=== PATIENT | female | born 1965 | race Caucasian/White ===

== ENCOUNTER 2021-11-01 09:27 | Inpatient (IN) | payer OTHER, MEDICAID, SELFPAY ==
[2021-11-01] VITALS (17 sets, daily range): BP systolic 109–141; BP diastolic 55–71; PULSE 93–119; RESP 16–26; TEMP 36.4–37.9; O2SAT 94–100; BMI 48.2
--- NOTE | 2021-11-01 09:40 | DI.RAD.S_ITS ---
PROCEDURE: XR ACUTE ABDOMEN SERIES INDICATIONS: Short of breath, fatigue TECHNIQUE: One view chest and two views of the abdomen were acquired. COMPARISON: [facility], CT, CT ANGIO CHEST PE, 10/12/2020, 13:31. FINDINGS: This study is limited by body habitus. Surgical changes and devices: Left groin clips are faintly seen. Chest: Generalized interstitial prominence can be seen No focal infiltrates are seen. Heart size is moderately enlarged. No pleural effusions. No pneumoperitoneum. Abdomen: Bowel gas pattern is normal. No suspicious calcifications. Visualized solid organ contours appear normal. Bones: No suspicious bony lesions. IMPRESSION: Cardiomegaly and interstitial prominence. Please correlate with patient presentation, physical examination findings, and laboratory values for congestive heart failure. A nonobstructive bowel gas pattern is seen. If clinically appropriate, please consider a repeat plain film study or a dedicated CT of the abdomen and pelvis, if the patient's symptoms persist or worsen. Dictated by: Jeyson Lechuga M.D. on 11/01/2021 at 9:27 Approved by: Jeyson Lechuga M.D. on 11/01/2021 at 9:28
--- NOTE | 2021-11-01 09:41 | ED_ITS ---
HPI - SOB/Dyspnea General Chief Complaint: Shortness of Breath/Dyspnea Stated Complaint: swollen waist to feet, SOB, chest burning Time Seen by Provider: 11/01/21 09:39 History of Present Illness HPI Narrative: 56-year-old female with reported history of hypertension, hyperlipidemia and high risk for stroke and myocardial infarction presents with a chief complaint of upwards of 1 week of increasing shortness of breath. She states that exertion makes her profoundly short of breath and now she can only walk about 50 ft before becoming short of breath. She denies any dizziness or li ghtheadedness. She denies any chest pain, nausea or vomiting. She states that she has been swelling from her lower extremities of to her abdomen. She denies any history of the same. She denies new medications, recent travel or dietary change. Additionally, she states she become short of breath when lying flat. Patient denies dark stool, red stool, or blood in urine. She states she has a family history of Herediatry hemorrhagic telangiectasia. Related Data Home Medications Medication Instructions Recorded Confirmed albuterol sulfate 90 mcg/actuation 2 puff INHALATION Q6HR PRN 11/01/21 11/01/21 aerosol inhaler (Ventolin HFA) hydrochlorothiazide 25 mg tablet 25 mg PO DAILY 11/01/21 11/01/21 lisinopril 20 mg tablet 20 mg PO DAILY 11/01/21 11/01/21 metformin 1,000 mg tablet 1,000 mg PO BID 11/01/21 11/01/21 pravastatin 10 mg tablet 10 mg PO DAILY 11/01/21 11/01/21 Allergies Allergy/AdvReac Type Severity Reaction Status Date / Time Fish Containing Products Allergy Verified 11/01/21 15:52 Review of Systems Review of Systems Narrative: GENERAL: See HPI HEENT: Denies sinus pain, ear pain, sore throat, difficulty swallowing, dizziness. RESPIRATORY: See HPI CARDIOVASCULAR: See HPI GASTROINTESTINAL: See HP : Denies dysuria, frequency, incontinence, hematuria, urinary retention. MUSCULOSKELETAL: denies weakness, joint pain, or bony pain SKIN: Denies rash, skin lesions, or other NEUROLOGIC: Denies weakness, headache, numbness, change in speech, confusion, seizures, incoordination. PSYCHIATRIC: No concerning psychosocial issues. 12 point review of systems is negative except for those stated above Patient History Social History household members: family Smoking Status: Current every day smoker Exam Narrative Exam Narrative: GENERAL: [56 year old patient appears stated age. Well-developed patient, in mild distress. Significantly breathless with minimal exertion, use of accessory muscles, conversational dyspnea HEAD: Atraumatic. Normocephalic. EYES: Pupils equal round and reactive. Extraocular motions intact. No scleral icterus. No injection or drainage. ENT: Nose without bleeding, purulent drainage. Throat without erythema, tonsillar hypertrophy or exudate. Airway patent. NECK: Trachea midline. Non tender CARDIOVASCULAR: Tachycardic but regular rhythm without murmurs, gallops, or rubs. 2+ pitting edema bilateral lower extremities RESPIRATORY: Faint crackles in bilateral bases, increased work of breathing and use of accessory muscles. GASTROINTESTINAL: Abdomen soft, non-tender, nondistended. EXTREMITIES: No edema or joint tenderness. BACK: Nontender without deformity or crepitance. No flank tenderness. NEURO: AOx3. SKIN: No rash or erythema of visible areas Initial Vital Signs Initial Vital Signs: Vital Signs Pulse Rate 100 H 11/01/21 09:51 Respiratory Rate 26 H 11/01/21 09:51 Blood Pressure 128/60 11/01/21 09:51 Pulse Oximetry 100 11/01/21 09:51 Course Orders Ordered: ED Orders 11/01/21 10:18 COVID19 -Nasal RAPID/Pre-Proc Stat 11/01/21 10:19 Packed Cells Stat Type and Screen Stat 11/01/21 10:40 Urine Culture Stat Urine Microscopic Stat Acetaminophen (Acetaminophen 325 Mg Tablet) 650 mg PO Q6HR PRN PRN Reason: pain Dextrose (Dextrose 50 % In Water 25 Gm/50 Ml Syringe) 25 gm IV PRN PRN; Protocol PRN Reason: Hypoglycemia Insulin Human Lispro (Insulin Lispro 100 Unit/Ml 3ml Vial) 0 unit SUBCUT [facility]; Protocol Last Admin: 11/01/21 18:19 Dose: Not Given Documented by: CWEAVER Discontinued Medications Furosemide (Furosemide 40 Mg/4 Ml Vial) 40 mg IV NOW ONE Stop: 11/01/21 10:08 Last Admin: 11/01/21 10:32 Dose: 40 mg Documented by: FLORIDAS Vital Signs Vital signs: Vital Signs - 8 hr 11/01/21 11:00 Pulse Rate 98 H Respiratory Rate 20 Blood Pressure 115/71 Pulse Oximetry 98 MDM - SOB/Dyspnea Lab Data Result diagrams: 11/01/21 09:48 11/01/21 09:48 Labs: Lab Results 11/01/21 11/01/21 11/01/21 Range/Units 09:48 09:48 09:48 WBC 8.4 (4.5-11.0) X10^3/uL RBC 3.88 L (4.0-5.2) X10^6/uL Hgb 5.9 L* (12.0-16.0) g/dL Hct 22.1 L (36-46) % MCV 57.0 L (80-100) fL MCH 15.3 L (26-34) PG MCHC 26.8 L (30-36) % RDW 23.6 H (11.6-14.8) % Plt Count 259 (150-400) X10^3/uL Neut % (Auto) 81.8 H (50-75) % Lymph % (Auto) 7.5 L (25-40) % Dewey % (Auto) 6.7 (3-14) % Eos % (Auto) 2.5 (2-4) % Baso % (Auto) 1.5 (0-2) % Neut # (Auto) 6900 (4848-5602) /uL Lymph # (Auto) 600 L (6060-1700) /uL Dewey # (Auto) 600 (0-900) /uL Eos # (Auto) 200 (0-450) /uL Baso # (Auto) 100 (0-100) /uL Nucleated RBCs Cancelled Hypersegmented Neuts Cancelled Hypogranular Neuts Cancelled Reactive Lymphocytes Cancelled Smudge Cells Cancelled Other Cell Type Cancelled Toxic Granulation Cancelled Toxic Vacuolation Cancelled Dohle Bodies Cancelled Hung Rods Cancelled WBC Morphology Comment Cancelled Platelet Estimate Cancelled Clumped Platelets Cancelled Plt Morphology Comment Cancelled RBC Morphology Cancelled Dimorphic RBCs Cancelled Polychromasia Cancelled Hypochromasia Cancelled Poikilocytosis Cancelled Basophilic Stippling Cancelled Anisocytosis Cancelled Microcytosis Cancelled Macrocytosis Cancelled Spherocytes Cancelled Pappenheimer Bodies Cancelled Sickle Cells Cancelled Target Cells Cancelled Tear Drop Cells Cancelled Ovalocytes Cancelled Stomatocytes Cancelled Helmet Cells Cancelled Douglas-Chalfant Bodies Cancelled [place] Rings Cancelled Whitman Cells Cancelled Acanthocytes (Spur) Cancelled Rouleaux Cancelled Schistocytes Cancelled D-Dimer 318 H (<230) ng/mL Sodium 139 (137-145) mmol/L Potassium 4.3 (3.4-5.1) mmol/L Chloride 103 (98-107) mmol/L Carbon Dioxide 26 (22-32) mmol/L BUN 19 H (7-17) mg/dL Creatinine 0.57 (0.52-1.04) mg/dL Estimated GFR > 60 (>60) mL/min BUN/Creatinine Ratio 33.3 H (6-22) Glucose 210 H (70-100) mg/dL Lactate (0.7-2.1) mmol/L Calcium 8.9 (8.4-10.2) mg/dL Magnesium 1.8 (1.6-2.3) mg/dL Iron (37-170) ug/dL TIBC (265-497) ug/dL % Saturation (15-50) % Transferrin (206-381) mg/dL Ferritin (11-264) ng/mL Total Bilirubin 0.4 (0.2-1.3) mg/dL AST 38 H (14-36) IU/L ALT 23 (<35) IU/L Alkaline Phosphatase 92 (38-126) U/L Total Creatine Kinase 35 (30-135) U/L CK-MB (CK-2) TNP CK-MB (CK-2) Rel Index TNP Troponin I < 0.012 (0.01-0.034) ng/mL NT-Pro-B Natriuret Pep 702 H (<125) pg/mL Total Protein 7.2 (6.3-8.2) g/dL Albumin 4.1 (3.5-5.0) g/dL Globulin 3.1 (1.7-4.1) g/dL Albumin/Globulin Ratio 1.3 (1.0-2.8) Urine RBC (0-5/HPF) Urine WBC (0-5/HPF) Ur Squamous Epith Cells (0-5/HPF) Urine Bacteria (None) Ur Culture Indicated? SARS-CoV-2 (PCR) (Negative) Blood Type Antibody Screen Crossmatch 11/01/21 11/01/21 11/01/21 Range/Units 09:48 09:48 09:48 WBC (4.5-11.0) X10^3/uL RBC (4.0-5.2) X10^6/uL Hgb (12.0-16.0) g/dL Hct (36-46) % MCV (80-100) fL MCH (26-34) PG MCHC (30-36) % RDW (11.6-14.8) % Plt Count (150-400) X10^3/uL Neut % (Auto) (50-75) % Lymph % (Auto) (25-40) % Dewey % (Auto) (3-14) % Eos % (Auto) (2-4) % Baso % (Auto) (0-2) % Neut # (Auto) (5656-8906) /uL Lymph # (Auto) (9990-1196) /uL Dewey # (Auto) (0-900) /uL Eos # (Auto) (0-450) /uL Baso # (Auto) (0-100) /uL Nucleated RBCs Hypersegmented Neuts Hypogranular Neuts Reactive Lymphocytes Smudge Cells Other Cell Type Toxic Granulation Toxic Vacuolation Dohle Bodies Hung Rods WBC Morphology Comment Platelet Estimate Clumped Platelets Plt Morphology Comment RBC Morphology Dimorphic RBCs Polychromasia Hypochromasia Poikilocytosis Basophilic Stippling Anisocytosis Microcytosis Macrocytosis Spherocytes Pappenheimer Bodies Sickle Cells Target Cells Tear Drop Cells Ovalocytes Stomatocytes Helmet Cells Douglas-Chalfant Bodies Arcadia Rings Leonel Cells Acanthocytes (Spur) Rouleaux Schistocytes D-Dimer (<230) ng/mL Sodium (137-145) mmol/L Potassium (3.4-5.1) mmol/L Chloride (98-107) mmol/L Carbon Dioxide (22-32) mmol/L BUN (7-17) mg/dL Creatinine (0.52-1.04) mg/dL Estimated GFR (>60) mL/min BUN/Creatinine Ratio (6-22) Glucose (70-100) mg/dL Lactate 2.7 H (0.7-2.1) mmol/L Calcium (8.4-10.2) mg/dL Magnesium (1.6-2.3) mg/dL Iron 26 L (37-170) ug/dL TIBC 494 (265-497) ug/dL % Saturation 5 L (15-50) % Transferrin 454 H (206-381) mg/dL Ferritin 6 L (11-264) ng/mL Total Bilirubin (0.2-1.3) mg/dL AST (14-36) IU/L ALT (<35) IU/L Alkaline Phosphatase (38-126) U/L Total Creatine Kinase (30-135) U/L CK-MB (CK-2) CK-MB (CK-2) Rel Index Troponin I (0.01-0.034) ng/mL NT-Pro-B Natriuret Pep (<125) pg/mL Total Protein (6.3-8.2) g/dL Albumin (3.5-5.0) g/dL Globulin (1.7-4.1) g/dL Albumin/Globulin Ratio (1.0-2.8) Urine RBC (0-5/HPF) Urine WBC (0-5/HPF) Ur Squamous Epith Cells (0-5/HPF) Urine Bacteria (None) Ur Culture Indicated? SARS-CoV-2 (PCR) (Negative) Blood Type Antibody Screen Crossmatch 11/01/21 11/01/21 11/01/21 Range/Units 10:18 10:19 10:40 WBC (4.5-11.0) X10^3/uL RBC (4.0-5.2) X10^6/uL Hgb (12.0-16.0) g/dL Hct (36-46) % MCV (80-100) fL MCH (26-34) PG MCHC (30-36) % RDW (11.6-14.8) % Plt Count (150-400) X10^3/uL Neut % (Auto) (50-75) % Lymph % (Auto) (25-40) % Dewey % (Auto) (3-14) % Eos % (Auto) (2-4) % Baso % (Auto) (0-2) % Neut # (Auto) (9187-6497) /uL Lymph # (Auto) (3429-6956) /uL Dewey # (Auto) (0-900) /uL Eos # (Auto) (0-450) /uL Baso # (Auto) (0-100) /uL Nucleated RBCs Hypersegmented Neuts Hypogranular Neuts Reactive Lymphocytes Smudge Cells Other Cell Type Toxic Granulation Toxic Vacuolation Dohle Bodies Hung Rods WBC Morphology Comment Platelet Estimate Clumped Platelets Plt Morphology Comment RBC Morphology Dimorphic RBCs Polychromasia Hypochromasia Poikilocytosis Basophilic Stippling Anisocytosis Microcytosis Macrocytosis Spherocytes Pappenheimer Bodies Sickle Cells Target Cells Tear Drop Cells Ovalocytes Stomatocytes Helmet Cells Douglas-Chalfant Bodies Arcadia Rings Leonel Cells Acanthocytes (Spur) Rouleaux Schistocytes D-Dimer (<230) ng/mL Sodium (137-145) mmol/L Potassium (3.4-5.1) mmol/L Chloride (98-107) mmol/L Carbon Dioxide (22-32) mmol/L BUN (7-17) mg/dL Creatinine (0.52-1.04) mg/dL Estimated GFR (>60) mL/min BUN/Creatinine Ratio (6-22) Glucose (70-100) mg/dL Lactate (0.7-2.1) mmol/L Calcium (8.4-10.2) mg/dL Magnesium (1.6-2.3) mg/dL Iron (37-170) ug/dL TIBC (265-497) ug/dL % Saturation (15-50) % Transferrin (206-381) mg/dL Ferritin (11-264) ng/mL Total Bilirubin (0.2-1.3) mg/dL AST (14-36) IU/L ALT (<35) IU/L Alkaline Phosphatase (38-126) U/L Total Creatine Kinase (30-135) U/L CK-MB (CK-2) CK-MB (CK-2) Rel Index Troponin I (0.01-0.034) ng/mL NT-Pro-B Natriuret Pep (<125) pg/mL Total Protein (6.3-8.2) g/dL Albumin (3.5-5.0) g/dL Globulin (1.7-4.1) g/dL Albumin/Globulin Ratio (1.0-2.8) Urine RBC None seen (0-5/HPF) Urine WBC 0-1/hpf (0-5/HPF) Ur Squamous Epith Cells None seen (0-5/HPF) Urine Bacteria None seen (None) Ur Culture Indicated? Cult not indicated SARS-CoV-2 (PCR) Negative (Negative) Blood Type O Positive Antibody Screen Negative Crossmatch See Detail Urine Dip Bedside Urine Glucose Negative Bedside Urine Bilirubin - Negative Bedside Urine Ketone - Negative Urine Specific [place] 1.020 Bedside Urine Occult Blood - Negative Bedside Urine pH 6 Bedside Urine Protein + 30 Bedside Urine Urobilinogen - Negative Bedside Urine Nitrite - Negative Bedside Urine Leukocytes - Negative Esterase Imaging Data Chest x-ray: Radiologist's Impression: Launch?[address] [address] XRay Report Signed Patient: Jayme Colby MR#: [id number] : 1965 Acct:[id number] Age/Sex: 56 / F Date of Service: 11/01/21 Loc: ED Accession Number: [id number] ?? Procedure: XR acute abdomen series Ordering Provider: Herb Michael D.O. PROCEDURE:? XR ACUTE ABDOMEN SERIES ? INDICATIONS:? Short of breath, fatigue ? TECHNIQUE:? One view chest and two views of the abdomen were acquired.? ? COMPARISON:? [facility], CT, CT ANGIO CHEST PE, 10/12/2020, 13:31. ? FINDINGS:? This study is limited by body habitus.? ? Surgical changes and devices:? Left groin clips are faintly seen. ? Chest:? Generalized interstitial prominence can be seen No focal infiltrates are seen.? Heart size is moderately enlarged.? No pleural effusions.? No pneumoperitoneum.? ? Abdomen:? Bowel gas pattern is normal.? No suspicious calcifications.? Visualized solid organ contours appear normal.? ? Bones:? No suspicious bony lesions.? ? ? IMPRESSION:? Cardiomegaly and interstitial prominence. Please correlate with patient presentation, physical examination findings, and laboratory values for congestive heart failure. ? ? A nonobstructive bowel gas pattern is seen. ? If clinically appropriate, please consider a repeat plain film study or a dedicated CT of the abdomen and pelvis, if the patient's symptoms persist or worsen. ? Dictated by: Jeyson Lechuga M.D. on 11/01/2021 at 9:27 ? ? Discharge Plan Departure Patient Disposition: Admitted as Observation Clinical Impression: Acute CHF, Anemia Admit Date/Time: 11/01/21 11:09 Admit Provider: Porfirio Vaca
[2021-11-01 10:05] LABS: Add Manual Diff / Slide Review NO; Basophils Absolute Auto 100 /uL (0-100); Basophils Percent Auto 1.5 % (0-2); Eosinophils Absolute Auto 200 /uL (0-450); Eosinophils Percent Auto 2.5 % (2-4); Hematocrit 22.1 % (36-46); Lymphocytes Absolute Auto 600 /uL (1100-4500); Lymphocytes Percent Auto 7.5 % (25-40); Mean Corpuscular HGB Conc 26.8 % (30-36); Mean Corpuscular Hemoglobin 15.3 PG (26-34); Monocytes Absolute Auto 600 /uL (0-900); Monocytes Percent Auto 6.7 % (3-14); Neutrophils Absolute Auto 6900 /uL (1500-7000); Neutrophils Percent Auto 81.8 % (50-75); Platelet Count 259 X10^3/uL (150-400); Red Blood Cell Count 3.88 X10^6/uL (4.0-5.2); Red Cell Distribution Width 23.6 % (11.6-14.8); White Blood Cell Count 8.4 X10^3/uL (4.5-11.0)
[2021-11-01 10:07] LABS: Hemoglobin 5.9 g/dL (12.0-16.0)
[2021-11-01 10:11] LABS: D Dimer 318 ng/mL (<230)
[2021-11-01 10:27] LABS: Alanine Aminotransferase 23 IU/L (<35); Albumin 4.1 g/dL (3.5-5.0); Albumin Globulin Ratio 1.3 (1.0-2.8); Alkaline Phosphatase 92 U/L (38-126); Aspartate Aminotransferase 38 IU/L (14-36); BUN Creatinine Ratio 33.3 (6-22); Bilirubin Total 0.4 mg/dL (0.2-1.3); Blood Urea Nitrogen 19 mg/dL (7-17); Calcium 8.9 mg/dL (8.4-10.2); Carbon Dioxide 26 mmol/L (22-32); Chloride 103 mmol/L (98-107); Creatine Kinase 35 U/L (30-135); Estimated Glomerular Filt Rate > 60 mL/min (>60); Globulin 3.1 g/dL (1.7-4.1); Glucose 210 mg/dL (70-100); HEMOLYSIS < 15 (0-50); Magnesium 1.8 mg/dL (1.6-2.3); Potassium 4.3 mmol/L (3.4-5.1); Sodium 139 mmol/L (137-145); Total Protein 7.2 g/dL (6.3-8.2)
[2021-11-01 10:28] LABS: Lactate (Lactic Acid) 2.7 mmol/L (0.7-2.1)
[2021-11-01] MEDS: FUROSEMIDE 40 MG/4 ML VIAL IV (10:32)
[2021-11-01 10:36] LABS: COVID19 -Nasal RAPID Negative (Negative)
[2021-11-01 10:39] LABS: NT-proBNP (BNP-Adult 18+) 702 pg/mL (<125); Troponin I < 0.012 ng/mL (0.01-0.034)
[2021-11-01 11:14] LABS: Bacteria Urine None Seen; Culture Indicated Urine Cult Not Indicated; RBC Urine None Seen (0-5/HPF); Squamous Epithelial Cell Urine None Seen (0-5/HPF); WBC Urine 0-1/HPF (0-5/HPF)
[2021-11-01 12:00] LABS: Reflexed Lactate in 2 Hours Y
[2021-11-01 13:42] LABS: Lactate 2HR (Lactic Acid Rflx) 1.4 mmol/L (0.7-2.1)
--- NOTE | 2021-11-01 14:41 | PC.NURSE ---
blood started on pt, vitals stable, blood is now almost complete, pt continues to be a Asymptomatic and lying in bed talking on her phone.
--- NOTE | 2021-11-01 14:53 | DI.ECHO.S_ITS ---
[facility] +---------+ [facility] +---------+ : : [address] : : : : [id number] : : : : Phone: [phone] Echocardiogram Report + + :Name: MERI GARCIA Study Date: 11/01/2021 Height: 67 in : :[facility] ReadingLocation: Weight: 308 lb : : Gender: Female BSA: 2.4 m2 : :: 1965 Age: 56 yrs BP: 110/55 mmHg: :Reason For Study: LOVE : :Ordering Physician: NIKHIL, : :SALMA Performed By: Nate Hough : :Referring: SALMA TEJEDA : + + Interpretation Summary The left ventricle is not well visualized. The left ventricle is grossly normal size. The echo findings are consistent with mild dynamic left ventricular intracavitary obstruction. The left ventricle is hyperdynamic. The ejection fraction is estimated to be >80%. There are no obvious focal wall motion abnormalities noted but poor endocardial definition reduces the sensitivity for the detection of such. The interventricular septum is flattened, consistent with a right ventricular pressure/volume condition. The right ventricle is moderate to severely dilated. Right ventricular systolic function is reduced. The right ventricular systolic pressure is estimated to be at least 82 mmHg based on an estimated right atrial pressure of 15 mm Hg. Compared to the prior echo exam, there has been an increase in the severity of pulmonary hypertension. The left atrial size is normal. The right atrium is severely dilated. There is severe tricuspid regurgitation. Compared to the prior echo exam, there has been an increase in TR severity. The aortic root is normal size. Procedure: A two-dimensional transthoracic echocardiogram with color flow and Doppler was performed. The study quality was technically difficult. Comparison is made with the echocardiogram of 04/15/2018. Left Ventricle: The left ventricle is not well visualized. The left ventricle is grossly normal size. The echo findings are consistent with mild dynamic left ventricular intracavitary obstruction. The left ventricle is hyperdynamic. The ejection fraction is estimated to be >80%. There are no obvious focal wall motion abnormalities noted but poor endocardial definition reduces the sensitivity for the detection of such. The interventricular septum is flattened, consistent with a right ventricular pressure/volume condition. Diastolic function could not be accurately assessed due to contradictory data. Right Ventricle: The right ventricle is moderate to severely dilated. Right ventricular systolic function is reduced. Atria: The left atrial size is normal. The right atrium is severely dilated. The interatrial septum grossly appears intact with no obvious evidence for an atrial septal defect. Mitral Valve: There is mild mitral annular calcification. There is no mitral regurgitation noted. Aortic Valve: There is mild aortic valve sclerosis. No aortic regurgitation is present. Tricuspid Valve: The tricuspid valve leaflets are thin and pliable. There is severe tricuspid regurgitation. Compared to the prior echo exam, there has been an increase in TR severity. The right ventricular systolic pressure is estimated to be at least 82 mmHg based on an estimated right atrial pressure of 15 mm Hg. Compared to the prior echo exam, there has been an increase in the severity of pulmonary hypertension. Pulmonic Valve: The pulmonic valve is not well visualized. Great Vessels: The aortic root is normal size. The dimensions of the ascending aorta are normal. The IVC is dilated (diameter is greater than 2.1 cm) and it collapses less than 50% with a sniff. This suggests a high right atrial pressure of 15 mm Hg. Pericardium/ Pleura There is no pericardial effusion. There is no pleural effusion. MMode/2D Measurements & Calculations LVIDd: 4.4 cm LVOT diam: 2.0 cm LVIDs: 2.4 cm Ao root diam: 2.9 cm FS: 46.5 % asc Aorta Diam: 3.3 cm IVSd: 0.91 cm LVPWd: 0.91 cm LV waggoner. diameter/BSA (cm/m^2): 1.8 LV sys. diameter/BSA (cm/m^2): 0.98 LA A2 area: 26.9 cm2 RA long axis: 6.6 cm LA A4 area: 21.5 cm2 RA area: 33.8 cm2 LA length (vol): 6.4 cm RA vol: 146.6 ml LA vol: 77.2 ml RA : 60.3 ml/m2 LA vol index: 31.8 ml/m2 IVC diam: 2.5 cm RVD1 (basal): 6.1 cm TAPSE: 2.8 cm Doppler Measurements & Calculations Ao V2 max: 226.3 cm/sec LVOT Max Dayday: 157.8 cm/sec Ao V2 mean: 160.1 cm/sec LV V1 max P.0 mmHg Ao max P.5 mmHg LV V1 VTI: 26.4 cm Ao mean P.4 mmHg GIDEON(I,D): 2.3 cm2 Ao V2 VTI: 36.3 cm GIDEON(V,D): 2.2 cm2 sev ratio: 0.73 GIDEON indexed to BSA (cm^2/m^2): 0.96 MV E max dayday: 86.7 cm/sec TR max dayday: 409.9 cm/sec MV A max dayday: 140.5 cm/sec TR max P.2 mmHg MV E/A: 0.62 Med Peak E' Dayday: 6.7 cm/sec E/E' med: 12.9 Lat Peak E' Dayday: 7.3 cm/sec E/E' lat: 11.9 E/e' average: 12.4 MV dec time: 0.26 sec SV(LVOT): 84.2 ml Reading Physician:05:36 PM
--- NOTE | 2021-11-01 15:03 | P.HP_ITS ---
History of Present Illness History of Present Illness Date Patient Seen: 11/01/21 Time Patient Seen: 14:30 Date of Onset of Symptoms: 10/22/21 Chief complaint: swollen waist to feet, SOB, chest burning Narrative: Patient is 56-year-old female with history of cigarette smoking, type 2 diabetes, nonocclusive coronary artery disease, hypertension presented with complaints exertional dyspnea for the past 10 days. She notice progressive shor tness of breath with walking even from room to room. She denies shortness of breath or chest pain at rest. She has vague constriction in her chest and throat with walking but denies actual chest pain or chest pressure. She has lately noticed some swelling or tightness in the legs. She has not had any nausea, vomiting, red blood or black stools. No fevers or chills. She has history of nonocclusive coronary artery disease and states she last saw Cardiology a couple of years ago. She had coronary angiogram in her 30s which showed 40% plaque in the left coronary artery. This is per patient's recollection. She has history of chronic sinus tachycardia as well. Evaluation in the ER was remarkable for hemoglobin of 5.9 and hematocrit of 22.1 with an MCV of 57. Electrolytes and renal function were normal. Glucose was 210. BNP was 702. Troponin was normal. Her COVID PCR was negative. Chest x- ray showed mild interstitial prominence. EKG showed sinus rhythm without ST or T-wave abnormality. No evidence of old CO. she was provided dose of IV Lasix 40 mg and started on blood transfusion. Family history notable for hereditary hemorrhagic cholangectasia in mom, grandfather and distant family members. Mom also had coronary artery disease requiring CABG and of a stroke. Dad had heart failure. Patient is a current smoker was up to 2 packs per day but recently cut down to less than 1 pack a day. Patient History Family & Social History Social History: household members family Prior Living Arrangements House Safety & Behavioral: Feels Safe in Current Yes Environment Been Physically Hurt or No Threatened By a Person Tobacco & Substance use: Tobacco type cigarettes Smoking Status Current every day smoker Substance Use Type does not use Meds Home Medications and Allergies Home Medications Medication Instructions Recorded Confirmed Type albuterol sulfate 90 mcg/actuation 2 puff INHALATION Q6HR PRN 11/01/21 11/01/21 History aerosol inhaler (Ventolin HFA) hydrochlorothiazide 25 mg tablet 25 mg PO DAILY 11/01/21 11/01/21 History lisinopril 20 mg tablet 20 mg PO DAILY 11/01/21 11/01/21 History metformin 1,000 mg tablet 1,000 mg PO BID 11/01/21 11/01/21 History pravastatin 10 mg tablet 10 mg PO DAILY 11/01/21 11/01/21 History Review of Systems Review of Systems Narrative: Complete 10 point ROS negative other than stated under HPI. Exam Vital Signs (past 8 hours): - 11/01/21 09:51 11/01/21 09:52 11/01/21 10:25 Temperature Pulse Rate 100 H 98 H 119 H Respiratory Rate 26 H 20 Blood Pressure 128/60 Pulse Oximetry 100 97 11/01/21 10:26 11/01/21 10:30 11/01/21 11:00 Temperature Pulse Rate 114 H 100 H 98 H Respiratory Rate 20 19 20 Blood Pressure 141/64 H 122/58 L 115/71 Pulse Oximetry 97 96 98 11/01/21 12:14 11/01/21 12:18 11/01/21 12:28 Temperature 97.8 F 97.8 F 97.8 F Pulse Rate 96 H 96 H 96 H Respiratory Rate 18 18 Blood Pressure 122/69 122/69 122/69 Pulse Oximetry 95 96 11/01/21 12:44 11/01/21 13:19 Temperature 98.3 F 98.9 F Pulse Rate 94 H 93 H Respiratory Rate 16 18 Blood Pressure 109/64 110/55 L Pulse Oximetry Oxygen Delivery Method Room Air Oxygen Flow Rate 0 Narrative Exam Narrative: General: Alert pleasant and cooperative female in no acute distress HEENT: Nontraumatic, anicteric, pupils equal and reactive Neck: No JVD, no lymphadenopathy Lungs: Clear to auscultation Heart: Normal S1 and S2 regular rhythm with slight systolic murmur Abdomen: Obese, nontender, no HSM Extremities: Trace bilateral pretibial edema Neurological: Well oriented, normal affect, normal speech Skin: Pale appearing Objective Labs Result Diagrams: 11/01/21 09:48 11/01/21 09:48 Labs: Laboratory Results - last 24 hr 11/01/21 11/01/21 11/01/21 09:48 09:48 09:48 WBC 8.4 RBC 3.88 L Hgb 5.9 L* Hct 22.1 L MCV 57.0 L MCH 15.3 L MCHC 26.8 L RDW 23.6 H Plt Count 259 Neut % (Auto) 81.8 H Lymph % (Auto) 7.5 L [place] % (Auto) 6.7 Eos % (Auto) 2.5 Baso % (Auto) 1.5 Neut # (Auto) 6900 Lymph # (Auto) 600 L [place] # (Auto) 600 Eos # (Auto) 200 Baso # (Auto) 100 Nucleated RBCs Cancelled Hypersegmented Neuts Cancelled Hypogranular Neuts Cancelled Reactive Lymphocytes Cancelled Smudge Cells Cancelled Other Cell Type Cancelled Toxic Granulation Cancelled Toxic Vacuolation Cancelled Dohle Bodies Cancelled Hung Rods Cancelled WBC Morphology Comment Cancelled Platelet Estimate Cancelled Clumped Platelets Cancelled Plt Morphology Comment Cancelled RBC Morphology Cancelled Dimorphic RBCs Cancelled Polychromasia Cancelled Hypochromasia Cancelled Poikilocytosis Cancelled Basophilic Stippling Cancelled Anisocytosis Cancelled Microcytosis Cancelled Macrocytosis Cancelled Spherocytes Cancelled Pappenheimer Bodies Cancelled Sickle Cells Cancelled Target Cells Cancelled Tear Drop Cells Cancelled Ovalocytes Cancelled Stomatocytes Cancelled Helmet Cells Cancelled [place] Bodies Cancelled [place] Rings Cancelled [place] Cells Cancelled Acanthocytes (Spur) Cancelled Rouleaux Cancelled Schistocytes Cancelled D-Dimer 318 H Sodium 139 Potassium 4.3 Chloride 103 Carbon Dioxide 26 BUN 19 H Creatinine 0.57 Estimated GFR > 60 BUN/Creatinine Ratio 33.3 H Glucose 210 H Lactate Calcium 8.9 Magnesium 1.8 Total Bilirubin 0.4 AST 38 H ALT 23 Alkaline Phosphatase 92 Total Creatine Kinase 35 CK-MB (CK-2) TNP CK-MB (CK-2) Rel Index TNP Troponin I < 0.012 NT-Pro-B Natriuret Pep 702 H Total Protein 7.2 Albumin 4.1 Globulin 3.1 Albumin/Globulin Ratio 1.3 Urine RBC Urine WBC Ur Squamous Epith Cells Urine Bacteria Ur Culture Indicated? SARS-CoV-2 (PCR) Blood Type Antibody Screen Crossmatch 11/01/21 11/01/21 11/01/21 09:48 10:18 10:19 WBC RBC Hgb Hct MCV MCH MCHC RDW Plt Count Neut % (Auto) Lymph % (Auto) [place] % (Auto) Eos % (Auto) Baso % (Auto) Neut # (Auto) Lymph # (Auto) [place] # (Auto) Eos # (Auto) Baso # (Auto) Nucleated RBCs Hypersegmented Neuts Hypogranular Neuts Reactive Lymphocytes Smudge Cells Other Cell Type Toxic Granulation Toxic Vacuolation Dohle Bodies Hung Rods WBC Morphology Comment Platelet Estimate Clumped Platelets Plt Morphology Comment RBC Morphology Dimorphic RBCs Polychromasia Hypochromasia Poikilocytosis Basophilic Stippling Anisocytosis Microcytosis Macrocytosis Spherocytes Pappenheimer Bodies Sickle Cells Target Cells Tear Drop Cells Ovalocytes Stomatocytes Helmet Cells [place] Bodies [place] Rings Leonel Cells Acanthocytes (Spur) Rouleaux Schistocytes D-Dimer Sodium Potassium Chloride Carbon Dioxide BUN Creatinine Estimated GFR BUN/Creatinine Ratio Glucose Lactate 2.7 H Calcium Magnesium Total Bilirubin AST ALT Alkaline Phosphatase Total Creatine Kinase CK-MB (CK-2) CK-MB (CK-2) Rel Index Troponin I NT-Pro-B Natriuret Pep Total Protein Albumin Globulin Albumin/Globulin Ratio Urine RBC Urine WBC Ur Squamous Epith Cells Urine Bacteria Ur Culture Indicated? SARS-CoV-2 (PCR) Negative Blood Type O Positive Antibody Screen Negative Crossmatch See Detail 11/01/21 11/01/21 10:40 13:10 WBC RBC Hgb Hct MCV MCH MCHC RDW Plt Count Neut % (Auto) Lymph % (Auto) [place] % (Auto) Eos % (Auto) Baso % (Auto) Neut # (Auto) Lymph # (Auto) [place] # (Auto) Eos # (Auto) Baso # (Auto) Nucleated RBCs Hypersegmented Neuts Hypogranular Neuts Reactive Lymphocytes Smudge Cells Other Cell Type Toxic Granulation Toxic Vacuolation Dohle Bodies Hung Rods WBC Morphology Comment Platelet Estimate Clumped Platelets Plt Morphology Comment RBC Morphology Dimorphic RBCs Polychromasia Hypochromasia Poikilocytosis Basophilic Stippling Anisocytosis Microcytosis Macrocytosis Spherocytes Pappenheimer Bodies Sickle Cells Target Cells Tear Drop Cells Ovalocytes Stomatocytes Helmet Cells [place] Bodies [place] Rings Leonel Cells Acanthocytes (Spur) Rouleaux Schistocytes D-Dimer Sodium Potassium Chloride Carbon Dioxide BUN Creatinine Estimated GFR BUN/Creatinine Ratio Glucose Lactate 1.4 Calcium Magnesium Total Bilirubin AST ALT Alkaline Phosphatase Total Creatine Kinase CK-MB (CK-2) CK-MB (CK-2) Rel Index Troponin I NT-Pro-B Natriuret Pep Total Protein Albumin Globulin Albumin/Globulin Ratio Urine RBC None seen Urine WBC 0-1/hpf Ur Squamous Epith Cells None seen Urine Bacteria None seen Ur Culture Indicated? Cult not indicated SARS-CoV-2 (PCR) Blood Type Antibody Screen Crossmatch Assessment & Plan Assessment & Plan narrative: This is a 56-year-old female active smoker, obesity, diabetes, nonocclusive CAD presents with 1.5 week history of exertional dyspnea and noted to be severely anemic. 1. Severe microcytic anemia -this is likely due to acute or chronic blood loss from the GI tract, patient is on daily low-dose aspirin, also has notable family history of HHC, has not had previous upper or lower endoscopy -symptoms of severe exertional dyspnea likely anemia related rather than primary cardiac -transfuse 2 units PRBC -iron studies -consult surgery for upper and lower endoscopy -stop daily aspirin -clear liquid diet pending surgery eval 2. Exertional dyspnea -as noted likely anemia related, normal EKG and troponin argues against occlus moon CAD, and clinically does not appear to be in acute heart failure -transthoracic echo -telemetry 3. Type 2 diabetes -low-dose insulin sliding scale -hold metformin -hemoglobin A1c 4. Hypertension -hold lisinopril and HCTZ for now Code status: Full code DVT prophylaxis: Lovenox contraindicated secondary to GI bleed Admit to observation Time Spent With Patient Critical Care time: I spent a total of [] minutes of critical care time on this patient's care today; this time is exclusive of procedural time. Quality VTE Deep Vein Thrombosis/Pulmonary Embolism Present on Admission: No
[2021-11-01 15:22] LABS: HEMOLYSIS 17 (0-50); Iron 26 ug/dL (37-170)
[2021-11-01 15:34] LABS: Percent Iron Saturation 5 % (15-50); Total Iron Binding Capacity 494 ug/dL (265-497); Transferrin 454 mg/dL (206-381)
[2021-11-01 15:59] LABS: Ferritin 6 ng/mL (11-264)
--- NOTE | 2021-11-01 19:07 | DI.CT.S_ITS ---
PROCEDURE: CT ABDOMEN PELVIS W CON INDICATIONS: Abdominal distension TECHNIQUE: After the administration of oral and IV contrast, axial sections were acquired from the lung bases to the pubic symphysis. Coronal and sagittal reformats were performed. For radiation dose reduction, the following was used: automated exposure control, adjustment of mA and/or kV according to patient size. COMPARISON: [facility], CT, CT ANGIO CHEST PE, 10/12/2020, 13:31. FINDINGS: Image quality: Excellent. Lung bases: Unremarkable. Heart: Heart size is enlarged. ABDOMEN: Liver: No mass lesion. Gallbladder: Within normal limits without calcified gallstones. Biliary ducts: No biliary ductal dilatation. Pancreas: Unremarkable. Spleen: Normal in size. Adrenal Glands: There is a thin walled cystic lesion associated with the left adrenal gland measuring up to 2.0 cm. Kidneys and Ureters: No hydronephrosis. Stomach and Bowel: Stomach, small bowel loops, and colon are normal in caliber and wall thickness. No pericecal inflammatory changes to suggest appendicitis. There is colonic diverticulosis without acute diverticulitis Peritoneum: No abnormal intraperitoneal fluid. No free air. Ventral Wall: No hernia. There is diffuse subcutaneous edema within the abdominal wall suggestive of anasarca. Abdominal Nodes: No retroperitoneal or mesenteric adenopathy by size criteria. Vessels: Aorta and inferior vena cava are normal in size. There is a small peripherally calcified aneurysm along the right renal artery measuring up to 1.3 cm. PELVIS: Pelvic Organs: Unremarkable. Bladder: Unremarkable. Pelvic Nodes: No enlarged lymph nodes. Miscellaneous: No inguinal hernias are seen. Bones: Visualized osseous structures demonstrate no suspicious focal lesions. IMPRESSION: 1. Diffuse subcutaneous edema within the abdominal wall suggestive of anasarca. Recommend correlation clinically. 2. Cystic lesion associated with the left adrenal gland likely representing sequelae of prior trauma or infection. 3. 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 Dictated by: Abe Tanner M.D. on 11/01/2021 at 20:07 Approved by: Abe Tanner M.D. on 11/01/2021 at 20:15
--- NOTE | 2021-11-01 19:13 | P.CONS_ITS ---
History of Present Illness Consult details Date Patient Seen: 11/01/21 Time Patient Seen: 19:13 Chief complaint: swollen waist to feet, SOB, chest burning Narrative: Jayme Colby is a 56-year-old woman who presented with complaints of 2 weeks of weakness and abdominal bloating. She noted that she has gained weight during this time frame. She has had some abdominal pain after eating during this time frame. In the ER she was noted to be severely anemic and 2 units of packed red blood cells were started. She has never had a colonoscopy. Her mother had some sort of radiographer angiogram cancer as well as hereditary telangiectasia. She has not noted any blood or melena recently. She does look at her bowel movements regularly. Meds Home Medications and Allergies Home Medications Medication Instructions Recorded Confirmed Type albuterol sulfate 90 mcg/actuation 2 puff INHALATION Q6HR PRN 11/01/21 11/01/21 History aerosol inhaler (Ventolin HFA) hydrochlorothiazide 25 mg tablet 25 mg PO DAILY 11/01/21 11/01/21 History lisinopril 20 mg tablet 20 mg PO DAILY 11/01/21 11/01/21 History metformin 1,000 mg tablet 1,000 mg PO BID 11/01/21 11/01/21 History pravastatin 10 mg tablet 10 mg PO DAILY 11/01/21 11/01/21 History Allergies Allergy/AdvReac Type Severity Reaction Status Date / Time Fish Containing Products Allergy Verified 11/01/21 15:52 Exam Vital Signs (past 8 hours): - 11/01/21 12:14 11/01/21 12:18 11/01/21 12:28 Temperature 97.8 F 97.8 F 97.8 F Pulse Rate 96 H 96 H 96 H Respiratory Rate 18 18 Blood Pressure 122/69 122/69 122/69 Pulse Oximetry 95 96 11/01/21 12:44 11/01/21 13:19 11/01/21 15:53 Temperature 98.3 F 98.9 F Pulse Rate 94 H 93 H Respiratory Rate 16 18 Blood Pressure 109/64 110/55 L Pulse Oximetry 96 11/01/21 16:55 Temperature 100.2 F H Pulse Rate 103 H Respiratory Rate 18 Blood Pressure 126/68 Pulse Oximetry 94 Oxygen Delivery Method Room Air Oxygen Flow Rate 0 Const Nutritional Appearance: obese GI Other: There are no peritoneal signs No tenderness to palpation Objective Labs Result Diagrams: 11/01/21 09:48 11/01/21 09:48 Labs: Laboratory Results - last 24 hr 11/01/21 11/01/21 11/01/21 09:48 09:48 09:48 WBC 8.4 RBC 3.88 L Hgb 5.9 L* Hct 22.1 L MCV 57.0 L MCH 15.3 L MCHC 26.8 L RDW 23.6 H Plt Count 259 Neut % (Auto) 81.8 H Lymph % (Auto) 7.5 L [place] % (Auto) 6.7 Eos % (Auto) 2.5 Baso % (Auto) 1.5 Neut # (Auto) 6900 Lymph # (Auto) 600 L [place] # (Auto) 600 Eos # (Auto) 200 Baso # (Auto) 100 Nucleated RBCs Cancelled Hypersegmented Neuts Cancelled Hypogranular Neuts Cancelled Reactive Lymphocytes Cancelled Smudge Cells Cancelled Other Cell Type Cancelled Toxic Granulation Cancelled Toxic Vacuolation Cancelled Dohle Bodies Cancelled Hung Rods Cancelled WBC Morphology Comment Cancelled Platelet Estimate Cancelled Clumped Platelets Cancelled Plt Morphology Comment Cancelled RBC Morphology Cancelled Dimorphic RBCs Cancelled Polychromasia Cancelled Hypochromasia Cancelled Poikilocytosis Cancelled Basophilic Stippling Cancelled Anisocytosis Cancelled Microcytosis Cancelled Macrocytosis Cancelled Spherocytes Cancelled Pappenheimer Bodies Cancelled Sickle Cells Cancelled Target Cells Cancelled Tear Drop Cells Cancelled Ovalocytes Cancelled Stomatocytes Cancelled Helmet Cells Cancelled [place] Bodies Cancelled [place] Rings Cancelled Leonel Cells Cancelled Acanthocytes (Spur) Cancelled Rouleaux Cancelled Schistocytes Cancelled D-Dimer 318 H Sodium 139 Potassium 4.3 Chloride 103 Carbon Dioxide 26 BUN 19 H Creatinine 0.57 Estimated GFR > 60 BUN/Creatinine Ratio 33.3 H Glucose 210 H Lactate Calcium 8.9 Magnesium 1.8 Iron TIBC % Saturation Transferrin Ferritin Total Bilirubin 0.4 AST 38 H ALT 23 Alkaline Phosphatase 92 Total Creatine Kinase 35 CK-MB (CK-2) TNP CK-MB (CK-2) Rel Index TNP Troponin I < 0.012 NT-Pro-B Natriuret Pep 702 H Total Protein 7.2 Albumin 4.1 Globulin 3.1 Albumin/Globulin Ratio 1.3 Urine RBC Urine WBC Ur Squamous Epith Cells Urine Bacteria Ur Culture Indicated? SARS-CoV-2 (PCR) Blood Type Antibody Screen Crossmatch 11/01/21 11/01/21 11/01/21 09:48 09:48 09:48 WBC RBC Hgb Hct MCV MCH MCHC RDW Plt Count Neut % (Auto) Lymph % (Auto) [place] % (Auto) Eos % (Auto) Baso % (Auto) Neut # (Auto) Lymph # (Auto) [place] # (Auto) Eos # (Auto) Baso # (Auto) Nucleated RBCs Hypersegmented Neuts Hypogranular Neuts Reactive Lymphocytes Smudge Cells Other Cell Type Toxic Granulation Toxic Vacuolation Dohle Bodies Hung Rods WBC Morphology Comment Platelet Estimate Clumped Platelets Plt Morphology Comment RBC Morphology Dimorphic RBCs Polychromasia Hypochromasia Poikilocytosis Basophilic Stippling Anisocytosis Microcytosis Macrocytosis Spherocytes Pappenheimer Bodies Sickle Cells Target Cells Tear Drop Cells Ovalocytes Stomatocytes Helmet Cells [place] Bodies [place] Rings [place] Cells Acanthocytes (Spur) Rouleaux Schistocytes D-Dimer Sodium Potassium Chloride Carbon Dioxide BUN Creatinine Estimated GFR BUN/Creatinine Ratio Glucose Lactate 2.7 H Calcium Magnesium Iron 26 L TIBC 494 % Saturation 5 L Transferrin 454 H Ferritin 6 L Total Bilirubin AST ALT Alkaline Phosphatase Total Creatine Kinase CK-MB (CK-2) CK-MB (CK-2) Rel Index Troponin I NT-Pro-B Natriuret Pep Total Protein Albumin Globulin Albumin/Globulin Ratio Urine RBC Urine WBC Ur Squamous Epith Cells Urine Bacteria Ur Culture Indicated? SARS-CoV-2 (PCR) Blood Type Antibody Screen Crossmatch 11/01/21 11/01/21 11/01/21 10:18 10:19 10:40 WBC RBC Hgb Hct MCV MCH MCHC RDW Plt Count Neut % (Auto) Lymph % (Auto) [place] % (Auto) Eos % (Auto) Baso % (Auto) Neut # (Auto) Lymph # (Auto) [place] # (Auto) Eos # (Auto) Baso # (Auto) Nucleated RBCs Hypersegmented Neuts Hypogranular Neuts Reactive Lymphocytes Smudge Cells Other Cell Type Toxic Granulation Toxic Vacuolation Dohle Bodies Hung Rods WBC Morphology Comment Platelet Estimate Clumped Platelets Plt Morphology Comment RBC Morphology Dimorphic RBCs Polychromasia Hypochromasia Poikilocytosis Basophilic Stippling Anisocytosis Microcytosis Macrocytosis Spherocytes Pappenheimer Bodies Sickle Cells Target Cells Tear Drop Cells Ovalocytes Stomatocytes Helmet Cells [place] Bodies [place] Rings Leonel Cells Acanthocytes (Spur) Rouleaux Schistocytes D-Dimer Sodium Potassium Chloride Carbon Dioxide BUN Creatinine Estimated GFR BUN/Creatinine Ratio Glucose Lactate Calcium Magnesium Iron TIBC % Saturation Transferrin Ferritin Total Bilirubin AST ALT Alkaline Phosphatase Total Creatine Kinase CK-MB (CK-2) CK-MB (CK-2) Rel Index Troponin I NT-Pro-B Natriuret Pep Total Protein Albumin Globulin Albumin/Globulin Ratio Urine RBC None seen Urine WBC 0-1/hpf Ur Squamous Epith Cells None seen Urine Bacteria None seen Ur Culture Indicated? Cult not indicated SARS-CoV-2 (PCR) Negative Blood Type O Positive Antibody Screen Negative Crossmatch See Detail 11/01/21 13:10 WBC RBC Hgb Hct MCV MCH MCHC RDW Plt Count Neut % (Auto) Lymph % (Auto) [place] % (Auto) Eos % (Auto) Baso % (Auto) Neut # (Auto) Lymph # (Auto) [place] # (Auto) Eos # (Auto) Baso # (Auto) Nucleated RBCs Hypersegmented Neuts Hypogranular Neuts Reactive Lymphocytes Smudge Cells Other Cell Type Toxic Granulation Toxic Vacuolation Dohle Bodies Hung Rods WBC Morphology Comment Platelet Estimate Clumped Platelets Plt Morphology Comment RBC Morphology Dimorphic RBCs Polychromasia Hypochromasia Poikilocytosis Basophilic Stippling Anisocytosis Microcytosis Macrocytosis Spherocytes Pappenheimer Bodies Sickle Cells Target Cells Tear Drop Cells Ovalocytes Stomatocytes Helmet Cells [place] Bodies [place] Rings Leonel Cells Acanthocytes (Spur) Rouleaux Schistocytes D-Dimer Sodium Potassium Chloride Carbon Dioxide BUN Creatinine Estimated GFR BUN/Creatinine Ratio Glucose Lactate 1.4 Calcium Magnesium Iron TIBC % Saturation Transferrin Ferritin Total Bilirubin AST ALT Alkaline Phosphatase Total Creatine Kinase CK-MB (CK-2) CK-MB (CK-2) Rel Index Troponin I NT-Pro-B Natriuret Pep Total Protein Albumin Globulin Albumin/Globulin Ratio Urine RBC Urine WBC Ur Squamous Epith Cells Urine Bacteria Ur Culture Indicated? SARS-CoV-2 (PCR) Blood Type Antibody Screen Crossmatch [facility] Social History household members: family Tobacco & Substance Use Smoking Status: Current every day smoker Assessment & Plan Assessment and plan (1) Anemia: Qualifiers: Anemia type: unspecified type Qualified Code(s): D64.9 - Anemia, unspecified Status: Acute Plan I will order a CT abdomen pelvis to rule out radiographer angiogram malignancy since she has noted weight gain and bloating. If no abnormalities are noted we would proceed with an EGD tomorrow. If no abnormalities are found on EGD we would start a colon prep and perform a colonoscopy the day after tomorrow. Time Spent With Patient Critical Care time: I spent a total of [] minutes of critical care time on this patient's care today; this time is exclusive of procedural time.
--- NOTE | 2021-11-01 19:35 | PC.NURSE ---
Pt. went down stairs for CT to her abdomen and pelvis, via wheel chair.
[2021-11-01] MEDS: ACETAMINOPHEN 325 MG TABLET 650 MG PO (23:14)
[2021-11-01] MEDS: SODIUM CHLORIDE 0.9% FLUSH 10 ML IV (23:18)
[2021-11-02] VITALS (20 sets, daily range): BP systolic 111–132; BP diastolic 50–85; PULSE 70–102; RESP 12–20; TEMP 36.1–36.9; O2SAT 92–98
--- NOTE | 2021-11-02 | PATH_ITS ---
[facility] Accession Number: [id number] . 01 Material submitted: . PART A: stomach - ANTRAL PART B: stomach - GASTRIC BODY . 02 Diagnosis: A. Antral: Portions of gastric antral and body type mucosa with mild chronic inflammation. Negative for Helicobacter organisms by immunohistochemistry. Negative for intestinal metaplasia. Negative for dysplasia or malignancy. . B. Gastric Body: Gastric body-type mucosa with mild chronic inflammation and mucosal erosion. Negative for Helicobacter organisms by immunohistochemistry. Negative for intestinal metaplasia. Negative for dysplasia or malignancy. [facility] 11/07/2021 1318 Local . 02 Electronically signed: . Thalia Kendrick MD, Pathologist NPI- [id number] . 01 Gross description: . Part A: ANTRAL: Received in formalin are 4 fragment(s) of araya, soft tissue measuring 0.4 x 0.2 x 0.2 cm to 0.2 x 0.2 x 0.1 cm submitted entirely in 1 cassette(s) Part B: GASTRIC BODY: Received in formalin are 2 fragment(s) of araya, soft tissue measuring 0.4 x 0.2 x 0.1 cm to 0.3 x 0.3 x 0.2 cm submitted entirely in 1 cassette(s) /QBJ 11/05/2021 0854 Local . 02 Microscopic: . A. An immunohistochemical stain is performed to evaluate for Helicobacter organisms and is negative. The control stain shows appropriate reactivity. . B. An immunohistochemical stain is performed to evaluate for Helicobacter organisms and is negative. The control stain shows appropriate reactivity. . * This test was developed and its performance characteristics determined by [employer]. It has not been cleared or approved by the U.S. Food and Drug Administration. The FDA has determined that such clearance or approval is not necessary. This test is used for clinical purposes. It should not be regarded as investigational or for research. . 02 Pathologist provided ICD-10: K29.70 . 02 CPT . 240290, 708594, [id number] Specimen Comment: A courtesy copy of this report has been sent to [phone] Performed at: 01 [facility] [address] [address], [place], [place] [id number] MD Abe Suárez MD Phone: [phone] Performed at: [address] [id number] MD Yuridia Nicholas MD Phone: [phone]
[2021-11-02 06:27] LABS: BUN Creatinine Ratio 28.8 (6-22); Basophils Absolute Auto 200 /uL (0-100); Basophils Percent Auto 2.1 % (0-2); Blood Urea Nitrogen 17 mg/dL (7-17); Calcium 8.7 mg/dL (8.4-10.2); Carbon Dioxide 28 mmol/L (22-32); Chloride 102 mmol/L (98-107); Eosinophils Absolute Auto 200 /uL (0-450); Eosinophils Percent Auto 2.6 % (2-4); Estimated Glomerular Filt Rate > 60 mL/min (>60); Glucose 170 mg/dL (70-100); HEMOLYSIS < 15 (0-50); Hematocrit 22.8 % (36-46); Lymphocytes Absolute Auto 600 /uL (1100-4500); Lymphocytes Percent Auto 6.8 % (25-40); Mean Corpuscular HGB Conc 27.8 % (30-36); Mean Corpuscular Volume 57.7 fL (80-100); Monocytes Absolute Auto 700 /uL (0-900); Monocytes Percent Auto 7.7 % (3-14); Neutrophils Absolute Auto 7300 /uL (1500-7000); Neutrophils Percent Auto 80.8 % (50-75); Platelet Count 245 X10^3/uL (150-400); Potassium 4.1 mmol/L (3.4-5.1); Red Blood Cell Count 3.96 X10^6/uL (4.0-5.2); Red Cell Distribution Width 24.9 % (11.6-14.8); Sodium 138 mmol/L (137-145); White Blood Cell Count 9.1 X10^3/uL (4.5-11.0)
[2021-11-02 06:41] LABS: Add Manual Diff / Slide Review SLIDE REVIEW; Hemoglobin 6.3 g/dL (12.0-16.0)
--- NOTE | 2021-11-02 06:44 | PM.CALLCOV.1 ---
Call Coverage Note Note Narrative of Care Provided: H and H this am is 6.3/22.8. Ordered for 1 unit PRBC.
[2021-11-02 07:10] LABS: Anisocytosis 2+; Microcytosis 1+
[2021-11-02 07:12] LABS: Hypochromasia 2+; Polychromasia 1+
--- NOTE | 2021-11-02 07:35 | PC.NURSE ---
PRBC's initiated with the rate of 75 cc/hr. monitor @ pt. for 15 mins. VS WNL & pt. denies any sign & symptoms, no noted any transfusion reactions. After 15 mins. increased infusion rate to 100 cc/hr. Will report to day RN. to monitor.
[2021-11-02] MEDS: SODIUM CHLORIDE 0.9% FLUSH 10 ML IV (08:44)
[2021-11-02 09:49] LABS: Hemoglobin A1C% w Est Avg Glu 8.2 % (4.0-6.0)
[2021-11-02 10:53] LABS: Hematocrit 26.6 % (36-46); Hemoglobin 7.6 g/dL (12.0-16.0)
--- NOTE | 2021-11-02 12:33 | PC.NURSE ---
Pt alert and oriented, attentive at bedside. [facility] . see new orders.
--- NOTE | 2021-11-02 14:09 | CM.IDA ---
DCP: Case received, EMR reviewed and met with patient. Introduced self and role. Was able to obtain information regarding patient's baseline activity level at home prior to hospitalization. DCP assessment completed with information currently available. Patient s a 56 year old female who admitted yesterday morning to the care of the hospitalist team. PCP: Dr. Landry at [facility]. [facility]: [facility] [employer]. Patient came to the hospital via private vehicle secondary to having increased shortness of breath. According to notes, patient could only walk 50 feet before becoming short of breath. Patient is a current smoker, used to smoke 2 packs a day, now, less than a pack a day. Patient has history of type 2 diabetes, HTN, CAD. Patient was diagnosed with severe microcytic anemia, exertional dyspnea related to anemia. Patient having 2 units PRBC, iron studies, and surgery consult for lower endoscopy. Met with patient in her room. She was sitting up at her bedside, on her cell phone. Asked her brief questions. Patient does reside in [place], and is independent. She did indicate that she lives with family, and drives. Confirmed that she does have a primary care provider at the [facility]. P: DCP to continue to follow for any needs. Patient should be able to go home when she is deemed medically stable. Helena Herndon RN/Baker Chef Discharge Planning/Care Management CM Discharge Assessment Start: 11/02/21 14:08 Freq: Status: Active Protocol: Document 11/02/21 14:08 (Rec: 11/02/21 14:09 [id number]) Discharge Planning Assessment Assigned Blower Insulator Helena Herndon RN/Baker Chef Advance Directives? No History Provided By Patient,Medical Record Prior Living Arrangements House Household Members family Type of transporation used prior to Drives own vehicle admit Independent with ADL's Yes Is patient alert and oriented? Yes Caregiver for Another No Barriers to Discharge No Discharge Plan Home Transportation Arrangement Family Referrals Initiated None needed Whiteboard Updated in Patient Room with Yes name and ext. # of Blower Insulator Review Status In Process Next Review Type Continued Stay Review
--- NOTE | 2021-11-02 14:32 | PC.NURSE ---
14:30 TAKEN TO SURGERY
[2021-11-02] MEDS: LACTATED RINGERS 1,000 ML 42 ML IV (14:40)
[2021-11-02] MEDS: LIDOCAINE 4% SOLN 50 ML 20 ML TOP (14:45)
--- NOTE | 2021-11-02 15:10 | PM.OP.EGD ---
Operative Date/Time/Diagnoses Date of procedure: 11/02/21 Time of procedure: 15:10 Pre-op diagnosis: Anemia Post-op diagnosis: same Procedure & Clinicians Study performed: Esophagogastroduodenoscopy Same procedure as scheduled: Yes Surgeon: Jaylen Morris Procedure Notes Procedure in detail: A timeout was performed. A bite blocked was placed. The patient was positioned in the left lateral decubitus position. The endoscope was inserted through the bite block and passed through the esophagus and stomach and into the duodenum. There were some small telangiectasias scattered throughout the duodenum and antrum. Random biopsies were taken from the antrum and the body of the stomach. There were some old shallow ulcers in the antrum but no evidence of recent bleeding. The rest of the stomach was normal. The scope was retroflexed and no hiatal hernia was seen. The scope was withdrawn into the esophagus and no abnormality was noted. The remainder of the esophagus was normal. The scope was withdrawn. The patient was awakened and brought to recovery.
--- NOTE | 2021-11-02 15:27 | SUR.PHASEI ---
Dr. Morris spoke with pt, report to NOAM Coleman. Stable PACU stay. Pt transported up.
--- NOTE | 2021-11-02 15:54 | SUR.PHASEI ---
Pt left with Jared and [employer] instable condition.
--- NOTE | 2021-11-02 16:01 | PM.PN.1 ---
Subjective Subjective Date Patient Seen: 11/02/21 Interval history: 56-year-old female with history of cigarette smoking, type 2 diabetes, nonocclusive coronary artery disease, hypertension presented with complaints exertional dyspnea and noted to be severely anemic. Patient is status post 3 units PRBC. EGD showed small telangiectasias in the duodenum and antrum and old shallow ulcers in the antrum without evidence of active bleeding. Patient also had echo which showed hyperdynamic LV with decreased RV systolic function and severe pulmonary hypertension Exam Vital Signs (past 8 hours): - 11/02/21 08:33 11/02/21 10:28 11/02/21 11:38 Temperature 97.3 F L 98.4 F 98.3 F Pulse Rate 89 91 H 94 H Respiratory Rate 18 20 18 Blood Pressure 119/85 125/64 119/59 L Pulse Oximetry 95 93 11/02/21 12:37 11/02/21 15:03 11/02/21 15:08 Temperature 97.4 F L 98.4 F Pulse Rate 70 102 H Respiratory Rate 18 17 Blood Pressure 122/67 130/78 Pulse Oximetry 94 94 92 11/02/21 15:13 11/02/21 15:23 Temperature 97.6 F Pulse Rate 98 H 97 H Respiratory Rate 12 14 Blood Pressure 128/78 132/73 Pulse Oximetry 96 98 Oxygen Delivery Method Nasal Cannula Oxygen Flow Rate 2 Narrative Exam Narrative: General: Alert, NAD Lungs: Clear Heart: Regular rhythm Extremities: Trace edema Neurological: Normal affect and speech Objective Labs Result Diagrams: 11/02/21 10:30 11/02/21 05:53 Labs: Laboratory Results - last 24 hr 11/01/21 11/01/21 11/01/21 09:48 09:48 10:19 WBC RBC Hgb Hct MCV MCH MCHC RDW Plt Count Neut % (Auto) Lymph % (Auto) [place] % (Auto) Eos % (Auto) Baso % (Auto) Neut # (Auto) Lymph # (Auto) [place] # (Auto) Eos # (Auto) Baso # (Auto) RBC Morphology Polychromasia Hypochromasia Anisocytosis Microcytosis Sodium Potassium Chloride Carbon Dioxide BUN Creatinine Estimated GFR BUN/Creatinine Ratio Glucose Hemoglobin A1c 8.2 H Calcium Ferritin 6 L Blood Type O Positive Antibody Screen Negative Crossmatch See Detail 11/02/21 11/02/21 11/02/21 05:53 05:53 10:30 WBC 9.1 RBC 3.96 L Hgb 6.3 L* 7.6 L Hct 22.8 L 26.6 L MCV 57.7 L MCH 16.0 L MCHC 27.8 L RDW 24.9 H Plt Count 245 Neut % (Auto) 80.8 H Lymph % (Auto) 6.8 L [place] % (Auto) 7.7 Eos % (Auto) 2.6 Baso % (Auto) 2.1 H Neut # (Auto) 7300 H Lymph # (Auto) 600 L [place] # (Auto) 700 Eos # (Auto) 200 Baso # (Auto) 200 H RBC Morphology See below Polychromasia 1+ H Hypochromasia 2+ H Anisocytosis 2+ H Microcytosis 1+ H Sodium 138 Potassium 4.1 Chloride 102 Carbon Dioxide 28 BUN 17 Creatinine 0.59 Estimated GFR > 60 BUN/Creatinine Ratio 28.8 H Glucose 170 H Hemoglobin A1c Calcium 8.7 Ferritin Blood Type Antibody Screen Crossmatch [facility] Social History household members: family Smoking Status: Current every day smoker Assessment & Plan Assessment & Plan narrative: This is a 56-year-old female active smoker, obesity, diabetes, nonocclusive CAD presents with 1.5 week history of exertional dyspnea and noted to be severely anemic. 1. 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 Severe pulmonary hypertension -echo shows hyperdynamic LV, RV systolic dysfunction, moderate to severe pulmonary hypertension -patient will follow-up with outpatient Cardiology at [facility] -may benefit from outpatient sleep study 3. Type 2 diabetes -low-dose insulin sliding scale -hold metformin -hemoglobin A1c 8.2 4. Hypertension -BP staying normal range off her antihypertensives -hold lisinopril and HCTZ for now Five. Cigarette dependency -encouraged to quit smoking Code status: Full code DVT prophylaxis:? Lovenox contraindicated secondary to GI bleed Time Spent With Patient Critical Care time: I spent a total of [] minutes of critical care time on this patient's care today; this time is exclusive of procedural time. Quality VTE Deep Vein Thrombosis/Pulmonary Embolism Present on Admission: No
--- NOTE | 2021-11-02 16:16 | PC.NURSE ---
Pt returned to unit post EGD. Pt alert, conversant and aware of move to the ACU room 218. Pt presently on the phone with family. Other than gas,pt has no overt complaints and appears relaxed. RR even and unlaboured, facial expression calm.
[2021-11-02] MEDS: PEG3350/SOD SULF,BICARB,CL/KCL 4,000 ML SOLUTION 2000 ML PO (20:00)
[2021-11-03] VITALS (10 sets, daily range): BP systolic 105–126; BP diastolic 54–75; PULSE 68–98; RESP 14–19; TEMP 36.1–36.6; O2SAT 93–97; BMI 48.2
[2021-11-03] MEDS: SODIUM CHLORIDE 0.9% FLUSH 10 ML IV (06:01)
--- NOTE | 2021-11-03 06:47 | PC.NURSE ---
Pt had a nose bleed tonight that resolved after applying pressure. pt started bowel prep last night. stools are yellow liquid.
--- NOTE | 2021-11-03 08:57 | PC.NURSE ---
Addendum entered by Shanta Quinonez R.N. 11/03/21 15:09: 1500 back to room from PACU, alert and oriented-vss no complaints call light within reach. Original Note: pt independent in room and sitting in chair awaiting colonoscopy today. no c/o at this time
--- NOTE | 2021-11-03 13:34 | PM.PREOP ---
Pre-operative Note COVID-19 COVID-19 status: Negative Result date/Date tested (Pos, Neg/Pending): 11/01/21 Interval Note History & Physical reviewed/Exam performed by Physician: Yes Changes to H&P: No ASA Class (for procedural sedation): III
[2021-11-03] MEDS: LACTATED RINGERS 1,000 ML 42 ML IV (13:45)
--- NOTE | 2021-11-03 14:27 | PM.OP.COLON ---
Operative Date/Time/Diagnoses Date of procedure: 11/03/21 Time of procedure: 14:27 Pre-op diagnosis: Anemia Post-op diagnosis: same Procedure & Clinicians Study performed: Colonoscopy Same procedure as scheduled: Yes Surgeon: Jaylen Morris Procedure Notes Procedure in detail: Surgeon: Jaylen Morris MD Procedure: The patient was brought to the endoscopy suite, placed in left lateral decubitus position. The patient was connected to monitoring devices. A time-out was performed. Sedation was administered. Once the patient was adequately sedated, a digital rectal exam was performed and was normal. The scope was then inserted and advanced to the cecum where the appendiceal orifice was identified and photographed. The terminal ileum was intubated and no abnormalities were noted, and particularly no telangiectasias. The scope was then slowly withdrawn over greater than 6 minutes. Mucosa was thoroughly inspected. There was a sick layer of bilious slime in the right colon which could be irrigated away with the washer. This caused the procedure time to the longer than usual. No abnormalities were noted throughout the colon. There is no evidence of recent bleeding. The scope was retroflexed in the rectum. No abnormalities were noted. The scope was straightened and removed. The patient was awakened and brought to recovery. EBL: 0 Findings: Normal colon Scope withdrawal time: 17 Sedation minutes: 31 Post-procedure Disposition: PACU
--- NOTE | 2021-11-03 16:17 | P.DS_ITS ---
History of Present Illness History of Present Illness Chief complaint: swollen waist to feet, SOB, chest burning Narrative: Patient is 56-year-old female with history of cigarette smoking, type 2 diabetes, nonocclusive coronary artery disease, hypertension presented with complaints exertional dyspnea for the past 10 days. She notice progressive shortness of breath with walking even from room to room. She denies shortness of breath or chest pain at rest. She has vague constriction in her chest and throat with walking but denies actual chest pain or chest pressure. She has lately noticed some swelling or tightness in the legs. She has not had any nausea, vomiting, red blood or black stools. No fevers or chills. She has history of nonocclusive coronary artery disease and states she last saw Cardiol ness a couple of years ago. She had coronary angiogram in her 30s which showed 40% plaque in the left coronary artery. This is per patient's recollection. She has history of chronic sinus tachycardia as well. Evaluation in the ER was remarkable for hemoglobin of 5.9 and hematocrit of 22.1 with an MCV of 57. Electrolytes and renal function were normal. Glucose was 210. BNP was 702. Troponin was normal. Her COVID PCR was negative. Chest x- ray showed mild interstitial prominence. EKG showed sinus rhythm without ST or T-wave abnormality. No evidence of old MN. she was provided dose of IV Lasix 40 mg and started on blood transfusion. Family history notable for hereditary hemorrhagic cholangectasia in mom, grandfather and distant family members. Mom also had coronary artery disease requiring CABG and of a stroke. Dad had heart failure. Patient is a current smoker was up to 2 packs per day but recently cut down to less than 1 pack a day. Discharge Providers Provider Date of admission: 11/01/21 11:09 Discharge Date: 11/03/21 Consults: 11/01/21 14:53 Consult to Physician Routine Comment: Consulting Provider: Jaylen Morris Reason for consultation: GI bleed Has provider been notified: Yes Discharge provider: Porfirio Vaca MD Summary Hospital Course Discharge Diagnosis: 1. Blood loss anemia acute/chronic 2. Pulmonary hypertension with RV failure, chronic 3. Type 2 diabetes 4. Cigarette dependency 5. Family history of hereditary hemorrhagic telangiectasia 6. 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 She was noted to be severely anemic with hemoglobin less than 6. She did get 3 units PRBC during this admission with follow-up hemoglobin of 7.6. EGD showed scattered telangiec tasias and duodenum and antrum and hold shallow ulcers in the stomach. There was no active bleeding. Colonoscopy was normal. Most likely she has bleeding from the telangiectasias. She has a family history of hereditary hemorrhagic telangiectasia in mom, grandmother and maternal uncles. She is instructed to quit smoking and stop aspirin and avoid NSAIDs. Have blood counts checked at her follow-up with PCP on November 13. Patient has significant ascites and peripheral lower extremity edema. Echo showed RV systolic dysfunction and at least moderate to or severe pulmonary hypertension with hyperdynamic LV systolic function. Echo findings may be secondary to severe anemia verses primary pulmonary etiology. Patient is established with Cardiology at [facility] and will follow-up there for further evaluation. Status at Discharge Cognitive/behavioral status at discharge: oriented Functional status at discharge: independent ambulation Overall status at discharge: patient is progressing back to baseline Time Spent with Patient Time spent: Greater than 30 minutes Exam Vital Signs (past 8 hours): - 11/03/21 09:10 11/03/21 11:00 11/03/21 13:38 Temperature 97.7 F 97.3 F L Pulse Rate 81 85 Respiratory Rate 18 19 Blood Pressure 117/60 121/71 Pulse Oximetry 96 95 97 11/03/21 13:41 11/03/21 14:29 11/03/21 14:34 Temperature 96.9 F L Pulse Rate 98 H 94 H Respiratory Rate 14 15 Blood Pressure 126/71 116/71 Pulse Oximetry 96 93 94 11/03/21 14:39 11/03/21 15:20 Temperature 97.8 F Pulse Rate 91 H 87 Respiratory Rate 16 16 Blood Pressure 111/75 105/65 Pulse Oximetry 97 95 Oxygen Delivery Method Room Air Oxygen Flow Rate 0 Narrative Exam Narrative: General: Alert and oriented and in no acute distress Objective Labs Result Diagrams: 11/02/21 10:30 11/02/21 05:53 [facility] Social History household members: family Smoking Status: Current every day smoker alcohol intake: never Discharge Plan Discharge Plan Patient Disposition: Home Provider Discharge Comment: You were admitted due to severe anemia. We transfused 3 units of blood. EGD showed scattered telangectasias in the stomach and duodenum. You also had old shallow ulcers in the stomach. Colonoscopy was normal. You were likely bleeding from the telangectasias. Have blood counts checked at your upcoming doctor's appointment. Your ECHO showed pulmonary hypertension which is elevation of pressures in the lung circulation. This is causing the right side of your heart to fail and fluid building up in your abdomen and legs. Pulmonary hypertension can be a complication of hereditary telangectasia or from anemia itself. Schedule cardiology appointment. CT scan showed left adrenal cyst, 1.3 cm left renal artery aneurysm, edema of abdominal wall Stop smoking. Avoid aspirin or NSAID pain relievers (Motrin, Aleve, etc) but Tylenol is okay to take. Discharge orders & Medications Prescriptions: New ferrous sulfate 324 mg (65 mg iron) tablet,delayed release (DR/EC) 324 mg PO BID Qty: 1 0RF Continued hydrochlorothiazide 25 mg tablet 25 mg PO DAILY 0RF Label Comments: TAKE 1 TABLET BY MOUTH ONCE DAILY lisinopril 20 mg tablet 20 mg PO DAILY 0RF Label Comments: TAKE 1 TABLET BY MOUTH ONCE DAILY pravastatin 10 mg tablet 10 mg PO DAILY 0RF Label Comments: TAKE 1 TABLET BY MOUTH ONCE DAILY metformin 1,000 mg tablet 1,000 mg PO BID 0RF Label Comments: TAKE 1 TABLET BY MOUTH TWICE DAILY albuterol sulfate [Ventolin HFA] 90 mcg/actuation HFA aerosol inhaler 2 puff INHALATION Q6HR PRN (Reason: Shortness Of Breath) 0RF Label Comments: INHALE 2 PUFFS BY MOUTH EVERY 6 HOURS NEEDED Discontinued aspirin 81 mg Tablet,Delayed Release (Dr/Ec) 81 mg PO DAILY 0RF Follow up/Referrals: Lena Carpio MD [Non-Staff] - As previously scheduled Diet/Activity/Treatments Diet: Regular Discharge Data Attending Provider: Porfirio Vaca VTE Deep Vein Thrombosis/Pulmonary Embolism Present on Admission: No
== END 2021-11-03 17:00 | disposition home or self-care (01) | DRG 385 ==
LOC: ED 10:41 → AC 11:29
PROVIDERS: Surgery; Admitting Provider Internal Medicine; Emergency Provider Emergency Medicine; Referring Provider Emergency Medicine; Visit Provider Internal Medicine
PROC: 0DJ08ZZ Inspection of Upper Intestinal Tract, Via Natural or Artificial Opening Endoscopic (ICD-10-PCS; CPT 43235; principal; 2021-11-02 13:45)
PROC: 0DJD8ZZ Inspection of Lower Intestinal Tract, Via Natural or Artificial Opening Endoscopic (ICD-10-PCS; CPT 45378; principal; 2021-11-03 12:15)
DX: I78.1 Nevus, non-neoplastic (principal); D62 Acute posthemorrhagic anemia; I27.20 Pulmonary hypertension, unspecified; K25.9 Gastric ulcer, unspecified as acute or chronic, without hemorrhage or perforation; R18.8 Other ascites; I50.1 Left ventricular failure, unspecified; I11.0 Hypertensive heart disease with heart failure; I25.10 Atherosclerotic heart disease of native coronary artery without angina pectoris; E11.9 Type 2 diabetes mellitus without complications; F17.210 Nicotine dependence, cigarettes, uncomplicated; Z79.84 Long term (current) use of oral hypoglycemic drugs; Z20.822 Contact with and (suspected) exposure to COVID-19
CPT/HCPCS: 36415; 36430; 43239; 45378; 74022; 74177; 80048; 80053; 81003; 81015; 82550; 82728; 82962; 83036; 83540; 83550; 83605; 83735; 83880; 84484; 85014; 85018; 85025; 85379; 86850; 86900; 86901; 87086; 87635; 93005; 93010; 93306; 94760; 96374; 99152; 99153; 99253; 99284; C9803; G0378; P9016; J1815; J1940; J2704; J3010; Q9967

== ENCOUNTER → 2021-11-22 12:06 | Outpatient (CLI) | payer OTHER, MEDICAID, SELFPAY ==
[2021-11-01 11:59] VITALS: BMI 48.2
--- NOTE | 2021-11-22 | DI.ECHO.S_ITS ---
[facility]---------+ [facility] +---------+ : : [address] [place] : : : : [id number] : : : : Phone: [phone] Echocardiogram Report + + :Name: MERI GARCIA Study Date: 11/22/2021 Height: 67 in : :[facility] ReadingLocation: Weight: 286 lb : : Gender: Female BSA: 2.4 m2 : :: 1965 Age: 56 yrs BP: 172/94 mmHg: :Reason For Study: Congestive Heart Failure : :Ordering Physician: KALEN, : :HENRRY Performed By: Nate Hough : :Referring: HENRRY MEDRANO : + + Interpretation Summary The left ventricle is normal in size. The left ventricle is hyperdynamic. The ejection fraction is estimated to be 75-80%. There are no focal wall motion abnormalities. The interventricular septum is flattened, consistent with a right ventricular pressure/volume condition. Diastolic parameters suggest a relaxation abnormality of the left ventricle, consistent with probable normal filling pressures. The right ventricle is moderate to severely dilated. RV free wall systolic function is reduced The right ventricular systolic pressure is estimated to be at least 89 mmHg based on an estimated right atrial pressure of 15 mm Hg. The left atrial size is normal. The right atrium is severely dilated. There is severe tricuspid regurgitation. The ascending aorta is mildly enlarged. There is a small pericardial effusion noted. Findings are suspicious for pre-capillary pulmonary HTN since diastolic parameters do not suggest increased LV filling pressures. Procedure: A two-dimensional transthoracic echocardiogram with color flow and Doppler was performed. The study quality was technically adequate. Comparison is made with the echocardiogram of 11/01/2021. Left Ventricle: The left ventricle is normal in size. There is mild concentric left ventricular hypertrophy. The left ventricle is hyperdynamic. The ejection fraction is estimated to be 75-80%. There are no focal wall motion abnormalities. The interventricular septum is flattened, consistent with a right ventricular pressure/volume condition. Diastolic parameters suggest a relaxation abnormality of the left ventricle, consistent with probable normal filling pressures. Right Ventricle: The right ventricle is moderate to severely dilated. RV free wall systolic function is reduced '. Atria: The left atrial size is normal. The right atrium is severely dilated. The interatrial septum grossly appears intact with no obvious evidence for an atrial septal defect. Mitral Valve: There is mild mitral annular calcification. There is no mitral regurgitation noted. Aortic Valve: There is mild aortic valve sclerosis. No aortic regurgitation is present. Tricuspid Valve: The tricuspid valve leaflets are thin and pliable. There is severe tricuspid regurgitation. The right ventricular systolic pressure is estimated to be at least 89 mmHg based on an estimated right atrial pressure of 15 mm Hg. Pulmonic Valve: The pulmonic valve is normal in structure and function. There is no pulmonic valvular regurgitation. Great Vessels: The aortic root is normal size. The ascending aorta is mildly enlarged. The IVC is dilated (diameter is greater than 2.1 cm) and it collapses less than 50% with a sniff. This suggests a high right atrial pressure of 15 mm Hg. Pericardium/ Pleura There is a small pericardial effusion noted. There is no pleural effusion. MMode/2D Measurements & Calculations LVIDd: 4.3 cm LVOT diam: 2.0 cm LVIDs: 2.9 cm Ao root diam: 3.0 cm FS: 33.4 % asc Aorta Diam: 3.8 cm IVSd: 1.1 cm LVPWd: 1.2 cm LV waggoner. diameter/BSA (cm/m^2): 1.8 LV sys. diameter/BSA (cm/m^2): 1.2 LA A2 area: 21.8 cm2 RA long axis: 6.2 cm LA A4 area: 25.9 cm2 RA area: 29.9 cm2 LA length (vol): 6.5 cm RA vol: 123.3 ml LA vol: 73.3 ml RA : 52.4 ml/m2 LA vol index: 31.2 ml/m2 IVC diam: 2.3 cm TAPSE: 2.4 cm Doppler Measurements & Calculations Ao V2 max: 193.9 cm/sec LVOT Max Dayday: 146.1 cm/sec Ao V2 mean: 128.6 cm/sec LV V1 max P.5 mmHg Ao max P.0 mmHg LV V1 VTI: 26.8 cm Ao mean P.5 mmHg GIDEON(I,D): 2.7 cm2 Ao V2 VTI: 30.6 cm GIDEON(V,D): 2.3 cm2 sev ratio: 0.88 GIDEON indexed to BSA (cm^2/m^2): 1.2 MV E max dayday: 100.4 cm/sec TR max dayday: 431.1 cm/sec MV A max dayday: 148.4 cm/sec TR max P.3 mmHg MV E/A: 0.68 Med Peak E' Dayday: 5.8 cm/sec E/E' med: 17.5 MV dec time: 0.30 sec [facility] 82.8 ml Reading Physician:07:23 PM
--- NOTE | 2021-11-22 | DI.CT.S_ITS ---
PROCEDURE: CT ANGIO CHEST PE PROTOCOL INDICATIONS: Right heart failure, unspecified TECHNIQUE: After the administration of intravenous contrast, 2 mm thick sections acquired from the pulmonary apices to the posterior costophrenic angles. 3-dimensional maximum intensity projection (MIP) coronal and sagittal reformats were then acquired through the thorax. For radiation dose reduction, the following was used: automated exposure control, adjustment of mA and/or kV according to patient size. COMPARISON: None. FINDINGS: Image quality: Excellent. Pulmonary arteries: Pulmonary arteries are normal in size, and demonstrate no intraluminal filling defects to suggest central pulmonary embolism. Lungs and pleura: There is mild centrilobular emphysema at the apices. There are geographic ground-glass radiopacities throughout both lungs. No focal airspace consolidation. No pleural effusions or pneumothorax. Central and peripheral airways are patent. Mediastinum: Heart size is enlarged, without pericardial effusion. No mediastinal or hilar adenopathy. Thoracic aorta is normal in caliber and enhancement. Esophagus is normal in caliber, without hiatal hernia. Bones and chest wall: No suspicious bony lesions. Ribs and thoracic spine appear intact throughout. Thyroid gland is unremarkable. No axillary or supraclavicular adenopathy. Abdomen: There is a fat containing left adrenal gland mass consistent with an adrenal adenoma. Visualized upper abdominal solid organs appear otherwise normal in the early arterial phase of enhancement. IMPRESSION: 1. No acute pulmonary embolus. 2. Geographic ground-glass radiopacities suggesting pulmonary edema. 3. Cardiomegaly. Dictated by: Estela Jefferson M.D. on 11/22/2021 at 13:47 Approved by: Estela Jefferson M.D. on 11/22/2021 at 13:51
== END ==
PROVIDERS: Referring Provider Internal Medicine Cardiovascular Disease; Visit Provider Internal Medicine Cardiovascular Disease
DX: I50.810 Right heart failure, unspecified (principal); R79.89 Other specified abnormal findings of blood chemistry; I07.1 Rheumatic tricuspid insufficiency; I31.3 Pericardial effusion (noninflammatory); I51.7 Cardiomegaly
CPT/HCPCS: 71275; 93306; Q9967

== ENCOUNTER → 2022-02-13 07:24 | Outpatient (CLI) | payer OTHER, MEDICAID, SELFPAY ==
[2021-11-01 11:59] VITALS: BMI 48.2
[2022-02-13 08:56] LABS: COVID19 -Nasal RAPID Negative (Negative)
== END ==
PROVIDERS: PCP Family Medicine; Referring Provider Internal Medicine; Visit Provider Internal Medicine
DX: Z20.822 Contact with and (suspected) exposure to COVID-19 (principal)
CPT/HCPCS: 87635; C9803

== ENCOUNTER → 2022-02-27 06:28 | Outpatient (CLI) | payer OTHER, MEDICAID, SELFPAY ==
[2021-11-01 11:59] VITALS: BMI 48.2
[2022-02-27 08:45] LABS: COVID19 -Nasal RAPID Negative (Negative)
== END ==
PROVIDERS: PCP Family Medicine; Referring Provider Internal Medicine; Visit Provider Internal Medicine
DX: Z20.822 Contact with and (suspected) exposure to COVID-19 (principal)
CPT/HCPCS: 87635; C9803

== ENCOUNTER → 2022-02-27 06:30 | Outpatient (CLI) | payer OTHER, MEDICAID, SELFPAY ==
[2021-11-01 11:59] VITALS: BMI 48.2
--- NOTE | 2022-03-05 09:28 | PM.PFT.1 ---
Pulmonary Function Test Referral & Results Date Patient Seen: 02/27/22 Requesting provider: Jaswinder Neil Results: The spirometry demonstrates an FVC of 2.23 L which is 58% of predicted. The FEV1 was measured at 1.98 L which is 66% of predicted. The FEV1/FVC ratio was 89 which is 112% of predicted. Following the administration of bronchodilator there was no appreciable change. Lung volumes show an SVC of 2.46 L which is 71% of predicted. The diffusing capacity was measured at 18.70 which is 66% of predicted. No hemoglobin value was provided, so no correction for potential anemia could be made, if appropriate. The maximum voluntary ventilation was minimally reduced Interpretation: This study demonstrates possibly mild to moderate obstructive lung disease based on reduction FEV1 although FEV1/FVC ratio is normal and there is no evidence of benefit following bronchodilator. In addition shape of flow volume loop argues against any significant obstructive lung disease There is a moderate reduction in lung volumes suggesting moderate restrictive lung disease which may well explain the abnormality in the FEV1 above There is also [id number] reduction diffusing capacity suggesting disease at the capillary alveolar level Clinical correlation suggested
== END ==
PROVIDERS: PCP Family Medicine; Referring Provider Internal Medicine Critical Care Medicine; Visit Provider Internal Medicine Critical Care Medicine
DX: I27.23 Pulmonary hypertension due to lung diseases and hypoxia (principal); F17.210 Nicotine dependence, cigarettes, uncomplicated; Z20.822 Contact with and (suspected) exposure to COVID-19; J98.8 Other specified respiratory disorders
CPT/HCPCS: 87635; 94060; 94726; 94729; C9803

== ENCOUNTER 2022-04-26 19:28 | Emergency (ER) | payer OTHER, MEDICAID, SELFPAY ==
[2021-11-01 11:59] VITALS: BMI 48.2
[2022-04-26] VITALS (14 sets, daily range): BP systolic 100–136; BP diastolic 52–102; PULSE 82–105; RESP 13–24; TEMP 36.6–37; O2SAT 95–99; BMI 41.0
--- NOTE | 2022-04-26 20:09 | DI.RAD.S_ITS ---
PROCEDURE: XR CHEST 1V INDICATIONS: chest pain TECHNIQUE: One view of the chest was acquired. COMPARISON: [facility], CR, XR CHEST 2 VIEWS, 10/12/2020, 8:19. FINDINGS: Surgical changes and devices: None. Lungs and pleura: Lungs are mildly abnormal, with a chronic interstitial prominence. No pleural effusions or pneumothorax. Mediastinum: Mediastinal contours appear normal. Heart size is at the upper limits of normal. Bones and chest wall: No suspicious bony lesions. Overlying soft tissues appear unremarkable. IMPRESSION: Chronic interstitial prominence, also seen 10/12/20. 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 Heart size at upper limits of normal. No definite acute pneumonia or CHF. Dictated by: Tino Cuevas M.D. on 04/26/2022 at 20:48 Approved by: Tino Cuevas M.D. on 04/26/2022 at 20:49
[2022-04-26 20:54] LABS: Alanine Aminotransferase 25 IU/L (<35); Albumin 4.1 g/dL (3.5-5.0); Albumin Globulin Ratio 1.4 (1.0-2.8); Alkaline Phosphatase 69 U/L (38-126); Aspartate Aminotransferase 23 IU/L (14-36); BUN Creatinine Ratio 39.4 (6-22); Blood Urea Nitrogen 28 mg/dL (7-17); Calcium 8.8 mg/dL (8.4-10.2); Carbon Dioxide 23 mmol/L (22-32); Chloride 103 mmol/L (98-107); Creatine Kinase 46 U/L (30-135); Estimated Glomerular Filt Rate > 60 mL/min (>60); Glucose 223 mg/dL (70-100); HEMOLYSIS < 15 (0-50); Lipase 146 U/L (23-300); Magnesium 1.8 mg/dL (1.6-2.3); Potassium 4.8 mmol/L (3.4-5.1); Sodium 137 mmol/L (137-145); Total Protein 7.1 g/dL (6.3-8.2)
[2022-04-26 20:55] LABS: Bilirubin Total < 0.1 mg/dL (0.2-1.3)
[2022-04-26 21:03] LABS: NT-proBNP (BNP-Adult 18+) 301 pg/mL (<125)
[2022-04-26 21:05] LABS: Troponin I < 0.012 ng/mL (0.01-0.034)
[2022-04-26 21:06] LABS: Add Manual Diff / Slide Review NO; Basophils Absolute Auto 200 /uL (0-100); Basophils Percent Auto 1.3 % (0-2); Eosinophils Absolute Auto 200 /uL (0-450); Eosinophils Percent Auto 1.5 % (2-4); Hematocrit 24.2 % (36-46); Hemoglobin 7.6 g/dL (12.0-16.0); Lymphocytes Absolute Auto 900 /uL (1100-4500); Lymphocytes Percent Auto 7.1 % (25-40); Mean Corpuscular HGB Conc 31.4 % (30-36); Mean Corpuscular Hemoglobin 28.4 PG (26-34); Mean Corpuscular Volume 90.4 fL (80-100); Monocytes Absolute Auto 800 /uL (0-900); Monocytes Percent Auto 6.9 % (3-14); Neutrophils Absolute Auto 10100 /uL (1500-7000); Neutrophils Percent Auto 83.2 % (50-75); Platelet Count 374 X10^3/uL (150-400); Red Blood Cell Count 2.67 X10^6/uL (4.0-5.2); Red Cell Distribution Width 13.8 % (11.6-14.8); White Blood Cell Count 12.2 X10^3/uL (4.5-11.0)
--- NOTE | 2022-04-26 22:17 | PC.NURSE ---
Pt standing at bedside. Pt reports dizziness. Asked pt to sit or lay in bed. Pt denied stating, My back hurts to much. Education about falls and concerns with dizziness given. Pt again declines to sit and remains standing.
[2022-04-26] MEDS: SODIUM CHLORIDE 0.9% 500 ML 1000 ML IV (22:43)
--- NOTE | 2022-04-26 22:50 | PC.NURSE ---
Pt reports left sided, intermittent stabbing chest pain that radiates up the neck, dizziness, and SOB that began earlier this morning and worsening with getting up and moving. Pt reports history of HHT, diabetes, and CHF. Reports prior hospitalization in August for a similar episode and needing 3 units of blood. Denies blood thinners, headache, nausea or vomiting. Provider made aware of pt assessment.
[2022-04-26 23:09] LABS: Prothrombin Time 11.6 SECONDS (10.1-12.7)
[2022-04-26 23:12] LABS: PTT Partial Thromboplastin Tim 29 SECONDS (26-36)
--- NOTE | 2022-04-26 23:20 | ED_ITS ---
HPI - Chest Pain <DO Mehrdad Farfan Last Filed: 04/30/22 10:03> General Chief Complaint: Chest Pain Stated Complaint: Chest Pain/Rapid Heart Rate/Headache/Dizzy/HX CHF Time Seen by Provider: 04/26/22 22:35 Source: patient Mode of arrival: Ambulatory Limitations: no limitations History of Present Illness HPI narrative: This is a 57-year-old female with HHT (hereditary hemorrhagic telangiectasia), diabetes, right-sided CHF, pulmonary disease, diabetes and dyslipidemia with prior blood transfusions for her HHT. Patient states she is had increasing shortness of breath and exertional chest pain for the past 2 days but has felt dizzy and lightheaded for longer than that. Patient has not had any syncope. She denies nausea or vomiting. She denies any GI or urinary symptoms. She does not take thinners she states she can not because of her HHT. She states she feels similar to when she needed blood. She does note she had AVM cautery a week ago at [facility]. She does use tobacco, no alcohol or illicit. She has a seafood allergy she is allergic to iodine but only iodine with fish protein in it. She can handle contrast for CTs without issue. Her PCP is Dr Mitchell Holbrook for cardiology, she sees Pulm at [facility]. Related Data Home Medications Medication Instructions Recorded Confirmed albuterol sulfate 90 mcg/actuation 2 puff inhalation Q6HR PRN 11/01/21 11/01/21 aerosol inhaler (Ventolin HFA) Shortness Of Breath hydrochlorothiazide 25 mg tablet 25 mg PO DAILY 11/01/21 11/01/21 lisinopril 20 mg tablet 20 mg PO DAILY 11/01/21 11/01/21 metformin 1,000 mg tablet 1,000 mg PO BID 11/01/21 11/01/21 pravastatin 10 mg tablet 10 mg PO DAILY 11/01/21 11/01/21 Previous Rx's Medication Instructions Recorded ferrous sulfate 324 mg (65 mg 324 mg PO BID #1 tab 11/03/21 iron) tablet,delayed release Allergies Allergy/AdvReac Type Severity Reaction Status Date / Time Fish Containing Products Allergy Verified 11/01/21 15:52 Review of Systems <DO Mehrdad Farfan Last Filed: 04/30/22 10:03> Review of Systems ROS Unobtainable: All systems reviewed & are unremarkable except as noted in HPI and below Patient History <Candi Stuart DO - Last Filed: 04/30/22 10:03> Social History household members: family Smoking Status: Current every day smoker alcohol intake: never Smoking Status: Current every day smoker tobacco type: cigarettes Substance Use Type: does not use Exam <Candi Stuart DO - Last Filed: 04/30/22 10:03> Narrative Exam Narrative: GENERAL: Alert and oriented x three, female in mild distress HEENT: Head normocephalic, atraumatic, EOMI, pupils reactive, face symmetric, moist mucous membranes NECK: Supple, full range of motion CARDIOVASCULAR: Regular rate and rhythm without murmurs, rubs or gallops. RESPIRATORY: Breath sounds equal bilaterally, no wheezes rales or rhonchi. ABDOMEN: Soft, nontender. Normoactive bowel sounds all 4 quadrants. No guardi ng or rebound, rigidity, no mass : No CVA tenderness EXTREMITIES: Normal range of motion, no clubbing or edema. Neurovascularly intact NEUROLOGICAL: Cranial nerves II through XII grossly intact. Moving all extremities. Patient stands and ambulates to the toilet. SKIN: Warm, dry, no petechiae, no rashes or lesions. Initial Vital Signs Initial Vital Signs: Vital Signs Temperature 98.6 F 04/26/22 20:03 Pulse Rate 98 H 04/26/22 20:03 Respiratory Rate 22 04/26/22 20:03 Blood Pressure 120/59 L 04/26/22 20:03 Pulse Oximetry 99 04/26/22 20:03 Oxygen Delivery Method 04/26/22 20:03 <Herb Michael DO - Last Filed: 04/29/22 08:01> Initial Vital Signs Initial Vital Signs: Vital Signs Temperature 98.6 F 04/26/22 20:03 Pulse Rate 98 H 04/26/22 20:03 Respiratory Rate 22 04/26/22 20:03 Blood Pressure 120/59 L 04/26/22 20:03 Pulse Oximetry 99 04/26/22 20:03 Oxygen Delivery Method 04/26/22 20:03 Course <Candi Stuart DO - Last Filed: 04/30/22 10:03> Orders Ordered: Discontinued Medications Furosemide (Furosemide 40 Mg/4 Ml Vial) 40 mg IV NOW ONE Stop: 04/27/22 04:04 Last Admin: 04/27/22 04:25 Dose: 40 mg Documented By: ANNETTE Sodium Chloride (Normal Saline 0.9%) 500 mls @ 1,000 mls/hr IV BOLUS ONE Stop: 04/26/22 23:06 Last Infusion: 04/26/22 23:15 Dose: 0 mls/hr Documented By: Admin: 04/26/22 22:43 Dose: 1,000 mls/hr Documented By: SB Pantoprazole Sodium (Pantoprazole 40 Mg Vial) 80 mg IV NOW ONE Stop: 04/27/22 01:17 Last Admin: 04/27/22 01:45 Dose: 80 mg Documented By: JOHN Consultations Consultation #1: Dr. Fragoso, GI at [facility] aware of patient he would recommend repeat upper endoscopy no additional medications at this time. Reviewed patient's records from [facility] and patient had several AVMs 7 total 3 of which were oozing. Vital Signs Vital signs: Vital Signs - 8 hr 04/28/22 02:09 Pulse Rate 65 Respiratory Rate 14 Blood Pressure 112/74 Pulse Oximetry 97 <Herb Michael, DO - Last Filed: 04/29/22 08:01> Orders Ordered: Discontinued Medications Furosemide (Furosemide 40 Mg/4 Ml Vial) 40 mg IV NOW ONE Stop: 04/27/22 04:04 Last Admin: 04/27/22 04:25 Dose: 40 mg Documented By: ANNETTE Sodium Chloride (Normal Saline 0.9%) 500 mls @ 1,000 mls/hr IV BOLUS ONE Stop: 04/26/22 23:06 Last Infusion: 04/26/22 23:15 Dose: 0 mls/hr Documented By: Admin: 04/26/22 22:43 Dose: 1,000 mls/hr Documented By: JOHN Pantoprazole Sodium (Pantoprazole 40 Mg Vial) 80 mg IV NOW ONE Stop: 04/27/22 01:17 Last Admin: 04/27/22 01:45 Dose: 80 mg Documented By: SB Vital Signs Vital signs: Vital Signs - 8 hr 04/28/22 02:09 Pulse Rate 65 Respiratory Rate 14 Blood Pressure 112/74 Pulse Oximetry 97 MDM - Chest Pain <Candi Stuart DO - Last Filed: 04/30/22 10:03> Lab Data Result diagrams: 04/28/22 05:49 04/28/22 05:49 Labs: Lab Results 04/26/22 04/26/22 04/26/22 Range/Units 20:28 20:28 20:45 WBC 12.2 H (4.5-11.0) X10^3/uL RBC 2.67 L (4.0-5.2) X10^6/uL Hgb 7.6 L (12.0-16.0) g/dL Hct 24.2 L (36-46) % MCV 90.4 (80-100) fL MCH 28.4 (26-34) PG MCHC 31.4 (30-36) % RDW 13.8 (11.6-14.8) % Plt Count 374 (150-400) X10^3/uL Neut % (Auto) 83.2 H (50-75) % Lymph % (Auto) 7.1 L (25-40) % [place] % (Auto) 6.9 (3-14) % Eos % (Auto) 1.5 L (2-4) % Baso % (Auto) 1.3 (0-2) % Neut # (Auto) 25661 H (5856-4851) /uL Lymph # (Auto) 900 L (4996-2518) /uL [place] # (Auto) 800 (0-900) /uL Eos # (Auto) 200 (0-450) /uL Baso # (Auto) 200 H (0-100) /uL PT (10.1-12.7) SECONDS INR (0.9-1.3) APTT (26-36) SECONDS Sodium 137 (137-145) mmol/L Potassium 4.8 (3.4-5.1) mmol/L Chloride 103 (98-107) mmol/L Carbon Dioxide 23 (22-32) mmol/L BUN 28 H (7-17) mg/dL Creatinine 0.71 (0.52-1.04) mg/dL Estimated GFR > 60 (>60) mL/min BUN/Creatinine Ratio 39.4 H (6-22) Glucose 223 H (70-100) mg/dL Calcium 8.8 (8.4-10.2) mg/dL Magnesium 1.8 (1.6-2.3) mg/dL Total Bilirubin < 0.1 L (0.2-1.3) mg/dL AST 23 (14-36) IU/L ALT 25 (<35) IU/L Alkaline Phosphatase 69 (38-126) U/L Total Creatine Kinase 46 (30-135) U/L CK-MB (CK-2) TNP CK-MB (CK-2) Rel Index TNP Troponin I < 0.012 (0.01-0.034) ng/mL NT-Pro-B Natriuret Pep 301 H (<125) pg/mL Total Protein 7.1 (6.3-8.2) g/dL Albumin 4.1 (3.5-5.0) g/dL Globulin 3.0 (1.7-4.1) g/dL Albumin/Globulin Ratio 1.4 (1.0-2.8) Lipase 146 (23-300) U/L SARS-CoV-2 (PCR) (Negative) Blood Type Antibody Screen Crossmatch 04/26/22 04/26/22 04/26/22 Range/Units 22:52 22:52 22:52 WBC (4.5-11.0) X10^3/uL RBC (4.0-5.2) X10^6/uL Hgb (12.0-16.0) g/dL Hct (36-46) % MCV (80-100) fL MCH (26-34) PG MCHC (30-36) % RDW (11.6-14.8) % Plt Count (150-400) X10^3/uL Neut % (Auto) (50-75) % Lymph % (Auto) (25-40) % [place] % (Auto) (3-14) % Eos % (Auto) (2-4) % Baso % (Auto) (0-2) % Neut # (Auto) (4615-8266) /uL Lymph # (Auto) (6189-3547) /uL [place] # (Auto) (0-900) /uL Eos # (Auto) (0-450) /uL Baso # (Auto) (0-100) /uL PT 11.6 (10.1-12.7) SECONDS INR 1.0 (0.9-1.3) APTT 29 (26-36) SECONDS Sodium (137-145) mmol/L Potassium (3.4-5.1) mmol/L Chloride (98-107) mmol/L Carbon Dioxide (22-32) mmol/L BUN (7-17) mg/dL Creatinine (0.52-1.04) mg/dL Estimated GFR (>60) mL/min BUN/Creatinine Ratio (6-22) Glucose (70-100) mg/dL Calcium (8.4-10.2) mg/dL Magnesium (1.6-2.3) mg/dL Total Bilirubin (0.2-1.3) mg/dL AST (14-36) IU/L ALT (<35) IU/L Alkaline Phosphatase (38-126) U/L Total Creatine Kinase (30-135) U/L CK-MB (CK-2) CK-MB (CK-2) Rel Index Troponin I < 0.012 (0.01-0.034) ng/mL NT-Pro-B Natriuret Pep (<125) pg/mL Total Protein (6.3-8.2) g/dL Albumin (3.5-5.0) g/dL Globulin (1.7-4.1) g/dL Albumin/Globulin Ratio (1.0-2.8) Lipase (23-300) U/L SARS-CoV-2 (PCR) (Negative) Blood Type O Positive Antibody Screen Negative Crossmatch See Detail 04/27/22 04/27/22 04/28/22 Range/Units 02:30 08:35 05:49 WBC 9.7 (4.5-11.0) X10^3/uL RBC 3.23 L (4.0-5.2) X10^6/uL Hgb 9.4 L 9.2 L (12.0-16.0) g/dL Hct 29.3 L 28.2 L (36-46) % MCV 87.3 D (80-100) fL MCH 28.4 (26-34) PG MCHC 32.6 (30-36) % RDW 15.1 H (11.6-14.8) % Plt Count 336 (150-400) X10^3/uL Neut % (Auto) 80.4 H (50-75) % Lymph % (Auto) 8.4 L (25-40) % [place] % (Auto) 8.3 (3-14) % Eos % (Auto) 2.3 (2-4) % Baso % (Auto) 0.6 (0-2) % Neut # (Auto) 7800 H (9549-4483) /uL Lymph # (Auto) 800 L (4676-8566) /uL [place] # (Auto) 800 (0-900) /uL Eos # (Auto) 200 (0-450) /uL Baso # (Auto) 100 (0-100) /uL PT (10.1-12.7) SECONDS INR (0.9-1.3) APTT (26-36) SECONDS Sodium (137-145) mmol/L Potassium (3.4-5.1) mmol/L Chloride (98-107) mmol/L Carbon Dioxide (22-32) mmol/L BUN (7-17) mg/dL Creatinine (0.52-1.04) mg/dL Estimated GFR (>60) mL/min BUN/Creatinine Ratio (6-22) Glucose (70-100) mg/dL Calcium (8.4-10.2) mg/dL Magnesium (1.6-2.3) mg/dL Total Bilirubin (0.2-1.3) mg/dL AST (14-36) IU/L ALT (<35) IU/L Alkaline Phosphatase (38-126) U/L Total Creatine Kinase (30-135) U/L CK-MB (CK-2) CK-MB (CK-2) Rel Index Troponin I (0.01-0.034) ng/mL NT-Pro-B Natriuret Pep (<125) pg/mL Total Protein (6.3-8.2) g/dL Albumin (3.5-5.0) g/dL Globulin (1.7-4.1) g/dL Albumin/Globulin Ratio (1.0-2.8) Lipase (23-300) U/L SARS-CoV-2 (PCR) Negative (Negative) Blood Type Antibody Screen Crossmatch 04/28/22 Range/Units 05:49 WBC (4.5-11.0) X10^3/uL RBC (4.0-5.2) X10^6/uL Hgb (12.0-16.0) g/dL Hct (36-46) % MCV (80-100) fL MCH (26-34) PG MCHC (30-36) % RDW (11.6-14.8) % Plt Count (150-400) X10^3/uL Neut % (Auto) (50-75) % Lymph % (Auto) (25-40) % [place] % (Auto) (3-14) % Eos % (Auto) (2-4) % Baso % (Auto) (0-2) % Neut # (Auto) (4375-4831) /uL Lymph # (Auto) (9003-1915) /uL [place] # (Auto) (0-900) /uL Eos # (Auto) (0-450) /uL Baso # (Auto) (0-100) /uL PT (10.1-12.7) SECONDS INR (0.9-1.3) APTT (26-36) SECONDS Sodium 137 (137-145) mmol/L Potassium 4.3 (3.4-5.1) mmol/L Chloride 105 (98-107) mmol/L Carbon Dioxide 25 (22-32) mmol/L BUN 19 H (7-17) mg/dL Creatinine 0.60 (0.52-1.04) mg/dL Estimated GFR > 60 (>60) mL/min BUN/Creatinine Ratio 31.7 H (6-22) Glucose 158 H (70-100) mg/dL Calcium 9.4 (8.4-10.2) mg/dL Magnesium (1.6-2.3) mg/dL Total Bilirubin (0.2-1.3) mg/dL AST (14-36) IU/L ALT (<35) IU/L Alkaline Phosphatase (38-126) U/L Total Creatine Kinase (30-135) U/L CK-MB (CK-2) CK-MB (CK-2) Rel Index Troponin I (0.01-0.034) ng/mL NT-Pro-B Natriuret Pep (<125) pg/mL Total Protein (6.3-8.2) g/dL Albumin (3.5-5.0) g/dL Globulin (1.7-4.1) g/dL Albumin/Globulin Ratio (1.0-2.8) Lipase (23-300) U/L SARS-CoV-2 (PCR) (Negative) Blood Type Antibody Screen Crossmatch Point of Care Testing Stool Occult Blood Positive Imaging Data CT scan - abdomen/pelvis: Radiologist's Impression: Close Abdomen/Pelvis CT (Signed) MasonTino - 04/26/22 Chest X-Ray (Signed) Tino Cuevas - 04/26/22 Launch?Image [address] [address] [address] Scan Report Signed Patient: Jayme Colby MR#: [id number] : 1965 Acct:[id number] Age/Sex: 57 / F Date of Service: 04/26/22 Loc: ED Accession Number: [id number] ?? Procedure: CT abdomen pelvis w con Ordering Provider: Candi Stuart D.O. PROCEDURE:? CT ABDOMEN PELVIS W CON ? INDICATIONS:? anemia, + stool occult had AVM cauterized 1 week ago. ? TECHNIQUE:? After the administration of intravenous contrast, axial sections acquired from the lung bases to the pubic symphysis.? Coronal and sagittal reformats were performed.? For radiation dose reduction, the following was used:? automated exposure control, adjustment of mA and/or kV according to patient size.? ? COMPARISON:? [facility], CT, CT ABDOMEN PELVIS W CON, 11/01/2021, 19:29. ? FINDINGS:? Image quality:? Excellent.? ? Lung bases:? Unremarkable. Heart:? No significant findings. ? ABDOMEN: Liver:? Unremarkable.? ? Gallbladder:? Partially contracted? ? Biliary ducts:? Unremarkable.? ? Pancreas:? Unremarkable.? ? Spleen:? Unremarkable.? ? Adrenal Glands:? Unremarkable.? ? Kidneys and Ureters:? 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 ? ? Stomach and Bowel:? Stomach, small bowel loops, and colon are unremarkable.? Peritoneum:? No abnormal intraperitoneal fluid.? No free air.? ? Ventral Wall: ? No hernias.? Abdominal Nodes:? No retroperitoneal or mesenteric adenopathy by size criteria.? Vessels:? Aorta and inferior vena cava are normal in size.? ? PELVIS: Pelvic Organs:? Unremarkable.? ? Bladder:? Unremarkable.? ? Pelvic Nodes: No enlarged lymph nodes.? Miscellaneous: No hernias are seen. ? ? ? Bones:? Unremarkable.? IMPRESSION:? Stable over time, no acute disease found.? Source of current symptoms is not identified. ? ? Dictated by: Tino Cuevas M.D. on 04/27/2022 at 0:44 ? ? Approved by: Tino Cuevas M.D. on 04/27/2022 at 0:47?? ECG Data Attestation: I personally reviewed and interpreted this ECG as follows: Interpretation: Sinus rhythm rate of 91 KS 164 QRS 86 QTC 452. No acute ST changes. MDM Narrative Medical decision making narrative: This is a 57-year-old female with history of hereditary hemorrhagic telangiectasia who presents and found to be with symptomatic anemia, stool occult positive and had scope on 04/15/[address] 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 Unclear if these were cauterized does not show it in the note and Dr. Fragoso did not clarify. Patient received blood with improvement of symptoms. Frankie roenterology did recommend transfer for scope and possible further intervention. Patient's preference is to go to [facility]. She is been hemodynamically stable so far the department. She did get 1 dose of IV Protonix for possible other source of bleed. Patient signed out to Dr. Michael while awaiting placement. [0700] (Alec) Patient received in sign out from [Narciso]. I have reviewed the clinical course and performed an independent history and physical exam. On multiple transfer lists 04/28/22 Narciso: Patient signed back out to myself by Dr. Michael. Patient had hemoglobin repeated and stable this morning. Will reorder a.m. labs for 6:00 a.m. today 04/28. Patient was seen independently by myself she is been up and about the department requesting food multiple times and asked to go to the [employer]. Discussed she can have some food. Continuing to seek [employer]. Patient has continued to be hemodynamically stable during stay. She is frustrated with her wait for transfer. Has discussed possibly leaving but willing to stay for the time being. Discussed we have exhausted all options for transfer and are continuing to try for placement. 04/28 - patient continues to be frustrated and states she wants to leave. She is been here few days with stable labs and no ongoing bleeding. She understands the strong recommendations from our emergency department staff as well as her director long term care to pursue transfer for repeat endoscopy given the potential high-risk nature of her bleeds. She verbalizes her understanding of the risks and benefits, she understands that she may return at any point without fear of repercussion. She is had questions answered to her apparent satisfaction and wishes to sign out against medical advice <Herb Michael DO - Last Filed: 04/29/22 08:01> Lab Data Labs: Lab Results 04/26/22 04/26/22 04/26/22 Range/Units 20:28 20:28 20:45 WBC 12.2 H (4.5-11.0) X10^3/uL RBC 2.67 L (4.0-5.2) X10^6/uL Hgb 7.6 L (12.0-16.0) g/dL Hct 24.2 L (36-46) % MCV 90.4 (80-100) fL MCH 28.4 (26-34) PG MCHC 31.4 (30-36) % RDW 13.8 (11.6-14.8) % Plt Count 374 (150-400) X10^3/uL Neut % (Auto) 83.2 H (50-75) % Lymph % (Auto) 7.1 L (25-40) % [place] % (Auto) 6.9 (3-14) % Eos % (Auto) 1.5 L (2-4) % Baso % (Auto) 1.3 (0-2) % Neut # (Auto) 13867 H (1031-3481) /uL Lymph # (Auto) 900 L (9597-6977) /uL [place] # (Auto) 800 (0-900) /uL Eos # (Auto) 200 (0-450) /uL Baso # (Auto) 200 H (0-100) /uL PT (10.1-12.7) SECONDS INR (0.9-1.3) APTT (26-36) SECONDS Sodium 137 (137-145) mmol/L Potassium 4.8 (3.4-5.1) mmol/L Chloride 103 (98-107) mmol/L Carbon Dioxide 23 (22-32) mmol/L BUN 28 H (7-17) mg/dL Creatinine 0.71 (0.52-1.04) mg/dL Estimated GFR > 60 (>60) mL/min BUN/Creatinine Ratio 39.4 H (6-22) Glucose 223 H (70-100) mg/dL Calcium 8.8 (8.4-10.2) mg/dL Magnesium 1.8 (1.6-2.3) mg/dL Total Bilirubin < 0.1 L (0.2-1.3) mg/dL AST 23 (14-36) IU/L ALT 25 (<35) IU/L Alkaline Phosphatase 69 (38-126) U/L Total Creatine Kinase 46 (30-135) U/L CK-MB (CK-2) TNP CK-MB (CK-2) Rel Index TNP Troponin I < 0.012 (0.01-0.034) ng/mL NT-Pro-B Natriuret Pep 301 H (<125) pg/mL Total Protein 7.1 (6.3-8.2) g/dL Albumin 4.1 (3.5-5.0) g/dL Globulin 3.0 (1.7-4.1) g/dL Albumin/Globulin Ratio 1.4 (1.0-2.8) Lipase 146 (23-300) U/L SARS-CoV-2 (PCR) (Negative) Blood Type Antibody Screen Crossmatch 04/26/22 04/26/22 04/26/22 Range/Units 22:52 22:52 22:52 WBC (4.5-11.0) X10^3/uL RBC (4.0-5.2) X10^6/uL Hgb (12.0-16.0) g/dL Hct (36-46) % MCV (80-100) fL MCH (26-34) PG MCHC (30-36) % RDW (11.6-14.8) % Plt Count (150-400) X10^3/uL Neut % (Auto) (50-75) % Lymph % (Auto) (25-40) % [place] % (Auto) (3-14) % Eos % (Auto) (2-4) % Baso % (Auto) (0-2) % Neut # (Auto) (8806-0129) /uL Lymph # (Auto) (6816-5922) /uL [place] # (Auto) (0-900) /uL Eos # (Auto) (0-450) /uL Baso # (Auto) (0-100) /uL PT 11.6 (10.1-12.7) SECONDS INR 1.0 (0.9-1.3) APTT 29 (26-36) SECONDS Sodium (137-145) mmol/L Potassium (3.4-5.1) mmol/L Chloride (98-107) mmol/L Carbon Dioxide (22-32) mmol/L BUN (7-17) mg/dL Creatinine (0.52-1.04) mg/dL Estimated GFR (>60) mL/min BUN/Creatinine Ratio (6-22) Glucose (70-100) mg/dL Calcium (8.4-10.2) mg/dL Magnesium (1.6-2.3) mg/dL Total Bilirubin (0.2-1.3) mg/dL AST (14-36) IU/L ALT (<35) IU/L Alkaline Phosphatase (38-126) U/L Total Creatine Kinase (30-135) U/L CK-MB (CK-2) CK-MB (CK-2) Rel Index Troponin I < 0.012 (0.01-0.034) ng/mL NT-Pro-B Natriuret Pep (<125) pg/mL Total Protein (6.3-8.2) g/dL Albumin (3.5-5.0) g/dL Globulin (1.7-4.1) g/dL Albumin/Globulin Ratio (1.0-2.8) Lipase (23-300) U/L SARS-CoV-2 (PCR) (Negative) Blood Type O Positive Antibody Screen Negative Crossmatch See Detail 04/27/22 04/27/22 04/28/22 Range/Units 02:30 08:35 05:49 WBC 9.7 (4.5-11.0) X10^3/uL RBC 3.23 L (4.0-5.2) X10^6/uL Hgb 9.4 L 9.2 L (12.0-16.0) g/dL Hct 29.3 L 28.2 L (36-46) % MCV 87.3 D (80-100) fL MCH 28.4 (26-34) PG MCHC 32.6 (30-36) % RDW 15.1 H (11.6-14.8) % Plt Count 336 (150-400) X10^3/uL Neut % (Auto) 80.4 H (50-75) % Lymph % (Auto) 8.4 L (25-40) % [place] % (Auto) 8.3 (3-14) % Eos % (Auto) 2.3 (2-4) % Baso % (Auto) 0.6 (0-2) % Neut # (Auto) 7800 H (2259-6735) /uL Lymph # (Auto) 800 L (1889-2342) /uL [place] # (Auto) 800 (0-900) /uL Eos # (Auto) 200 (0-450) /uL Baso # (Auto) 100 (0-100) /uL PT (10.1-12.7) SECONDS INR (0.9-1.3) APTT (26-36) SECONDS Sodium (137-145) mmol/L Potassium (3.4-5.1) mmol/L Chloride (98-107) mmol/L Carbon Dioxide (22-32) mmol/L BUN (7-17) mg/dL Creatinine (0.52-1.04) mg/dL Estimated GFR (>60) mL/min BUN/Creatinine Ratio (6-22) Glucose (70-100) mg/dL Calcium (8.4-10.2) mg/dL Magnesium (1.6-2.3) mg/dL Total Bilirubin (0.2-1.3) mg/dL AST (14-36) IU/L ALT (<35) IU/L Alkaline Phosphatase (38-126) U/L Total Creatine Kinase (30-135) U/L CK-MB (CK-2) CK-MB (CK-2) Rel Index Troponin I (0.01-0.034) ng/mL NT-Pro-B Natriuret Pep (<125) pg/mL Total Protein (6.3-8.2) g/dL Albumin (3.5-5.0) g/dL Globulin (1.7-4.1) g/dL Albumin/Globulin Ratio (1.0-2.8) Lipase (23-300) U/L SARS-CoV-2 (PCR) Negative (Negative) Blood Type Antibody Screen Crossmatch 04/28/22 Range/Units 05:49 WBC (4.5-11.0) X10^3/uL RBC (4.0-5.2) X10^6/uL Hgb (12.0-16.0) g/dL Hct (36-46) % MCV (80-100) fL MCH (26-34) PG MCHC (30-36) % RDW (11.6-14.8) % Plt Count (150-400) X10^3/uL Neut % (Auto) (50-75) % Lymph % (Auto) (25-40) % [place] % (Auto) (3-14) % Eos % (Auto) (2-4) % Baso % (Auto) (0-2) % Neut # (Auto) (4863-6632) /uL Lymph # (Auto) (3592-6922) /uL [place] # (Auto) (0-900) /uL Eos # (Auto) (0-450) /uL Baso # (Auto) (0-100) /uL PT (10.1-12.7) SECONDS INR (0.9-1.3) APTT (26-36) SECONDS Sodium 137 (137-145) mmol/L Potassium 4.3 (3.4-5.1) mmol/L Chloride 105 (98-107) mmol/L Carbon Dioxide 25 (22-32) mmol/L BUN 19 H (7-17) mg/dL Creatinine 0.60 (0.52-1.04) mg/dL Estimated GFR > 60 (>60) mL/min BUN/Creatinine Ratio 31.7 H (6-22) Glucose 158 H (70-100) mg/dL Calcium 9.4 (8.4-10.2) mg/dL Magnesium (1.6-2.3) mg/dL Total Bilirubin (0.2-1.3) mg/dL AST (14-36) IU/L ALT (<35) IU/L Alkaline Phosphatase (38-126) U/L Total Creatine Kinase (30-135) U/L CK-MB (CK-2) CK-MB (CK-2) Rel Index Troponin I (0.01-0.034) ng/mL NT-Pro-B Natriuret Pep (<125) pg/mL Total Protein (6.3-8.2) g/dL Albumin (3.5-5.0) g/dL Globulin (1.7-4.1) g/dL Albumin/Globulin Ratio (1.0-2.8) Lipase (23-300) U/L SARS-CoV-2 (PCR) (Negative) Blood Type Antibody Screen Crossmatch Point of Care Testing Stool Occult Blood Positive MDM Narrative Medical decision making narrative: This is a 57-year-old female with history of hereditary hemorrhagic telangiectasia who presents and found to be with symptomatic anemia, stool occult positive and had scope on 04/15/[address] 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 Unclear if these were cauterized does not show it in the note and Dr. Fragoso did not clarify. Patient received blood with improvement of symptoms. Gastroenter ology did recommend transfer for scope and possible further intervention. Patient's preference is to go to [facility]. She is been hemodynamically stable so far the department. She did get 1 dose of IV Protonix for possible other source of bleed. Patient signed out to Dr. Michael while awaiting placement. [0700] (Alec) Patient received in sign out from [Narciso]. I have reviewed the clinical course and performed an independent history and physical exam. On multiple transfer lists 04/28/22 Narciso: Patient signed back out to myself by Dr. Michael. Patient had hemoglobin repeated and stable this morning. Will reorder a.m. labs for 6:00 a.m. today 04/28. Patient was seen independently by myself she is been up and about the department requesting food multiple times and asked to go to the [employer]. Discussed she can have some food. Continuing to seek placement. 04/28 - patient continues to be frustrated and states she wants to leave. She is been here few days with stable labs and no ongoing bleeding. She understands the strong recommendations from our emergency department staff as well as her director long term care to pursue transfer for repeat endoscopy given the potential high-risk nature of her bleeds. She verbalizes her understanding of the risks and benefits, she understands that she may return at any point without fear of repercussion. She is had questions answered to her apparent satisfaction and wishes to sign out against medical advice Critical Care Time <Candi Stuart, DO - Last Filed: 04/30/22 10:03> Critical Care Time Critical Care Time: Yes Attestation: The high probability of a clinically significant, sudden or life threatening deterioration of the [cardiac, heme] system(s) required my full and direct attention, intervention and personal management. The aggregate critical care time was [] minutes. This time is in addition to time spent performing reported procedures but includes the following: [x] Data Review and interpretation [x] Patient assessment and monitoring of vital signs [x] Documentation [x] Medication orders and management <Herb Michael, DO - Last Filed: 04/29/22 08:01> Critical Care Time Total Critical Care Time: 30 Attestation: The high probability of a clinically significant, sudden or life threatening deterioration of the [cardiac, heme] system(s) required my full and direct attention, intervention and personal management. The aggregate critical care time was [30] minutes. This time is in addition to time spent performing reported procedures but includes the following: [x] Data Review and interpretation [x] Patient assessment and monitoring of vital signs [x] Documentation [x] Medication orders and management Discharge Plan Departure Patient Disposition: Left Against Medical Advice Clinical Impression: Symptomatic anemia, GI bleed, Arteriovenous malformation of duodenum Prescriptions: No Action hydrochlorothiazide 25 mg tablet 25 mg PO DAILY Label Comments: TAKE 1 TABLET BY MOUTH ONCE DAILY lisinopril 20 mg tablet 20 mg PO DAILY Label Comments: TAKE 1 TABLET BY MOUTH ONCE DAILY pravastatin 10 mg tablet 10 mg PO DAILY Label Comments: TAKE 1 TABLET BY MOUTH ONCE DAILY metformin 1,000 mg tablet 1,000 mg PO BID Label Comments: TAKE 1 TABLET BY MOUTH TWICE DAILY albuterol sulfate [Ventolin HFA] 90 mcg/actuation HFA aerosol inhaler 2 puff INHALATION Q6HR PRN (Reason: Shortness Of Breath) Label Comments: INHALE 2 PUFFS BY MOUTH EVERY 6 HOURS NEEDED ferrous sulfate 324 mg (65 mg iron) tablet,delayed release (DR/EC) 324 mg PO BID Qty: 1 0RF Stand Alone Forms: Against Medical Advice
[2022-04-26 23:25] LABS: Troponin I < 0.012 ng/mL (0.01-0.034)
--- NOTE | 2022-04-26 23:55 | DI.CT.S_ITS ---
PROCEDURE: CT ABDOMEN PELVIS W CON INDICATIONS: anemia, + stool occult had AVM cauterized 1 week ago. TECHNIQUE: After the administration of intravenous contrast, axial sections acquired from the lung bases to the pubic symphysis. Coronal and sagittal reformats were performed. For radiation dose reduction, the following was used: automated exposure control, adjustment of mA and/or kV according to patient size. COMPARISON: [facility], CT, CT ABDOMEN PELVIS W CON, 11/01/2021, 19:29. FINDINGS: Image quality: Excellent. Lung bases: Unremarkable. Heart: No significant findings. ABDOMEN: Liver: Unremarkable. Gallbladder: Partially contracted Biliary ducts: Unremarkable. Pancreas: Unremarkable. Spleen: Unremarkable. Adrenal Glands: Unremarkable. 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 Stomach and Bowel: Stomach, small bowel loops, and colon are unremarkable. Peritoneum: No abnormal intraperitoneal fluid. No free air. Ventral Wall: No hernias. Abdominal Nodes: No retroperitoneal or mesenteric adenopathy by size criteria. Vessels: Aorta and inferior vena cava are normal in size. PELVIS: Pelvic Organs: Unremarkable. Bladder: Unremarkable. Pelvic Nodes: No enlarged lymph nodes. Miscellaneous: No hernias are seen. Bones: Unremarkable. IMPRESSION: Stable over time, no acute disease found. Source of current symptoms is not identified. Dictated by: Tino Cuevas M.D. on 04/27/2022 at 0:44 Approved by: Tino Cuevas M.D. on 04/27/2022 at 0:47
[2022-04-27] VITALS (45 sets, daily range): BP systolic 105–155; BP diastolic 52–72; PULSE 77–103; RESP 12–41; TEMP 36–36.7; O2SAT 91–98
[2022-04-27] MEDS: PANTOPRAZOLE 40 MG VIAL 80 MG IV (01:45)
--- NOTE | 2022-04-27 02:48 | PC.NURSE ---
Pt went from lying to sitting prior to the initial set of vitals for second unit of blood. Pt blood pressure was elevated. Next vitals at the q15 [place] showed a decline in blood pressure. Pt was sitting on bed. Denies chest pain. Provider made aware. Provider OK with blood transfusion continuing.
[2022-04-27 02:52] LABS: COVID19 -Nasal RAPID Negative (Negative)
--- NOTE | 2022-04-27 02:52 | PC.NURSE ---
Addendum entered by Ely Cohen CNA 04/27/22 03:57: [facility] called for placement Original Note: FIELD COORDINATOR/RU note: Attempt to transfer patient: [facility]: 0100 no beds; put on waitlist; [facility]; waitlist; spoke to Nery TREVINO: 0143 will call back [facility]: 0115 0 beds, was told to call back in the morning; spoke to Katiana Rivera: 0115 no beds/no waitlist; spoke to Tracey Ordoñez: 0136; having a code when I called. They will have someone review the information and call us back --- @[phone] called and said they cannot accommodate her. Doctor Narciso causey
[2022-04-27] MEDS: FUROSEMIDE 40 MG/4 ML VIAL IV (04:25)
--- NOTE | 2022-04-27 07:39 | PC.NURSE ---
multiple unmeasured voids/stools in bsc 2000 ml
[2022-04-27 08:54] LABS: Hematocrit 29.3 % (36-46); Hemoglobin 9.4 g/dL (12.0-16.0)
--- NOTE | 2022-04-27 12:56 | PC.NURSE ---
pt informed she is NPO . would like to talk to the doctor. wants to go home if there is no bed for her. emotional support and explanation to patient. verbalized understanding. Dr. Michael aware and spoke with patient
--- NOTE | 2022-04-27 13:14 | PC.NURSE ---
pt wants to go home, took off her ekg leads, bp cuff and pulse ox. states she doesn't understand why she needs to wait in the hospital with no bed availability. explained to patient. requested to talk to Dr. Michael again. aware
--- NOTE | 2022-04-27 18:03 | PC.NURSE ---
Both IV's flushed and patent.
[2022-04-28 02:09] VITALS: BP 112/74; PULSE 65; RESP 14; O2SAT 97
[2022-04-28 05:57] LABS: Add Manual Diff / Slide Review NO; Basophils Absolute Auto 100 /uL (0-100); Basophils Percent Auto 0.6 % (0-2); Eosinophils Absolute Auto 200 /uL (0-450); Eosinophils Percent Auto 2.3 % (2-4); Hematocrit 28.2 % (36-46); Hemoglobin 9.2 g/dL (12.0-16.0); Lymphocytes Absolute Auto 800 /uL (1100-4500); Lymphocytes Percent Auto 8.4 % (25-40); Mean Corpuscular HGB Conc 32.6 % (30-36); Mean Corpuscular Hemoglobin 28.4 PG (26-34); Mean Corpuscular Volume 87.3 fL (80-100); Monocytes Absolute Auto 800 /uL (0-900); Monocytes Percent Auto 8.3 % (3-14); Neutrophils Absolute Auto 7800 /uL (1500-7000); Neutrophils Percent Auto 80.4 % (50-75); Platelet Count 336 X10^3/uL (150-400); Red Blood Cell Count 3.23 X10^6/uL (4.0-5.2); Red Cell Distribution Width 15.1 % (11.6-14.8); White Blood Cell Count 9.7 X10^3/uL (4.5-11.0)
[2022-04-28 06:08] LABS: BUN Creatinine Ratio 31.7 (6-22); Blood Urea Nitrogen 19 mg/dL (7-17); Calcium 9.4 mg/dL (8.4-10.2); Carbon Dioxide 25 mmol/L (22-32); Chloride 105 mmol/L (98-107); Estimated Glomerular Filt Rate > 60 mL/min (>60); Glucose 158 mg/dL (70-100); HEMOLYSIS < 15 (0-50); Potassium 4.3 mmol/L (3.4-5.1); Sodium 137 mmol/L (137-145)
[2022-04-28 06:57] VITALS: BP 121/68; PULSE 75; RESP 16; O2SAT 98
== END 2022-04-28 07:22 | disposition left against medical advice (07) ==
PROVIDERS: Emergency Medicine; Emergency Provider Emergency Medicine; PCP Family Medicine
DX: D64.89 Other specified anemias (principal); K92.2 Gastrointestinal hemorrhage, unspecified; K31.819 Angiodysplasia of stomach and duodenum without bleeding; R06.02 Shortness of breath; I50.9 Heart failure, unspecified; Z20.822 Contact with and (suspected) exposure to COVID-19
CPT/HCPCS: 36415; 36430; 71045; 74177; 80048; 80053; 82272; 82550; 83690; 83735; 83880; 84484; 85014; 85018; 85025; 85610; 85730; 86850; 86900; 86901; 87635; 93005; 96361; 96374; 96375; 99285; 99291; C9803; P9016; C9113; J1940

== ENCOUNTER → 2023-02-17 11:23 | Outpatient (CLI) | payer MEDICARE, SELFPAY ==
[2021-11-01 11:59] VITALS: BMI 48.2
[2023-02-17 12:18] LABS: Add Manual Diff / Slide Review NO; Basophils Absolute Auto 100 /uL (0-100); Basophils Percent Auto 0.7 % (0-2); Eosinophils Absolute Auto 300 /uL (0-450); Eosinophils Percent Auto 2.6 % (2-4); Hematocrit 32.9 % (36-46); Lymphocytes Absolute Auto 1000 /uL (1100-4500); Lymphocytes Percent Auto 8.6 % (25-40); Mean Corpuscular HGB Conc 30.5 % (30-36); Mean Corpuscular Hemoglobin 26.4 PG (26-34); Mean Corpuscular Volume 86.5 fL (80-100); Monocytes Absolute Auto 700 /uL (0-900); Monocytes Percent Auto 6.6 % (3-14); Neutrophils Absolute Auto 9200 /uL (1500-7000); Neutrophils Percent Auto 81.5 % (50-75); Platelet Count 313 X10^3/uL (150-400); Red Cell Distribution Width 15.9 % (11.6-14.8); White Blood Cell Count 11.3 X10^3/uL (4.5-11.0)
== END ==
PROVIDERS: PCP Family Medicine; Referring Provider Internal Medicine; Visit Provider Internal Medicine
DX: Q27.30 Arteriovenous malformation, site unspecified (principal)
CPT/HCPCS: 36415; 85025

== ENCOUNTER 2023-03-08 15:14 | Emergency (ER) | payer MEDICARE, SELFPAY ==
[2021-11-01 11:59] VITALS: BMI 48.2
[2023-03-08] VITALS (16 sets, daily range): BP systolic 91–125; BP diastolic 53–66; PULSE 78–99; RESP 16–29; TEMP 36.9; O2SAT 91–98; BMI 39.9
--- NOTE | 2023-03-08 15:28 | DI.RAD.S_ITS ---
PROCEDURE: XR CHEST 1V INDICATIONS: chest pain TECHNIQUE: One view of the chest was acquired. COMPARISON: [facility], CR, XR CHEST 1V, 04/26/2022, 20:22. FINDINGS: Surgical changes and devices: None. Lungs and pleura: Lungs are clear. No pleural effusions or pneumothorax. Atherosclerotic vascular calcification noted in the aortic arch. Mediastinum: Mediastinal contours appear normal. Heart size is normal. Bones and chest wall: No suspicious bony lesions. Overlying soft tissues appear unremarkable. IMPRESSION: No acute cardiopulmonary findings Approved by: Joel Andrea M.D. on 03/08/2023 at 16:32
--- NOTE | 2023-03-08 15:39 | ED_ITS ---
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 She reports orthopnea getting worse over the last few days she also reports significant dyspnea with exertion which has gotten much worse today. She has chronic rectal bleeding she had 2 large episodes today but did not seem much worse than normal. She feels generally weak denies significant headache no nausea or vomiting. She thinks that her legs are slightly more swollen than normal. She has chronic abdominal pain which is not any worse than normal. She denies any fever chills or cough. She is not normally on oxygen. She also reports an increase 10 lb over the last 2 days. She is on torsemide and spironolactone. Related Data Home Medications Medication Instructions Recorded Confirmed albuterol sulfate 90 mcg/actuation 2 puff inhalation Q6HR PRN 11/01/21 08/13/22 aerosol inhaler (Ventolin HFA) Shortness Of Breath hydrochlorothiazide 25 mg tablet 25 mg PO DAILY 11/01/21 08/13/22 lisinopril 20 mg tablet 20 mg PO DAILY 11/01/21 08/13/22 metformin 1,000 mg tablet 1,000 mg PO BID 11/01/21 08/13/22 pravastatin 10 mg tablet 10 mg PO DAILY 11/01/21 08/13/22 acetylcysteine 600 mg capsule (NAC) 600 mg PO BID 08/13/22 08/13/22 alpha lipoic acid 200 mg capsule 200 mg PO BID 08/13/22 08/13/22 atorvastatin 20 mg tablet 20 mg PO DAILY 08/13/22 08/13/22 cetirizine 10 mg capsule (All Day 10 mg PO DAILY PRN 08/13/22 08/13/22 Allergy (cetirizine)) fluticasone propionate 110 1 puff inhalation ONCE 08/13/22 08/13/22 mcg/actuation HFA aerosol inhaler (Flovent HFA) pantoprazole 40 mg tablet,delayed 40 mg PO BID 02/15/23 02/15/23 release spironolactone 25 mg tablet 25 mg PO DAILY 08/13/22 08/13/22 torsemide 10 mg tablet 10 mg PO DAILY 08/13/22 08/13/22 Previous Rx's Medication Instructions Recorded ferrous sulfate 324 mg (65 mg 324 mg PO BID #1 tab 11/03/21 iron) tablet,delayed release prednisone 20 mg tablet 40 mg PO DAILY #10 tabs 03/08/23 torsemide 10 mg tablet 10 mg PO BID #6 tabs 03/08/23 Allergies Allergy/AdvReac Type Severity Reaction Status Date / Time Fish Containing Products Allergy Verified 08/13/22 13:34 Blood Thinners AdvReac Intermediate Uncoded 03/08/23 15:50 Review of Systems Review of Systems ROS Unobtainable: All systems reviewed & are unremarkable except as noted in HPI and below Patient History Medical History Asthma AVM (arteriovenous malformation) of colon Diabetic peripheral neuropathy Facet arthropathy, lumbar Lumbar stenosis with neurogenic claudication Social History household members: family Smoking Status: Current every day smoker alcohol intake: never Smoking Status: Current every day smoker tobacco type: cigarettes Substance Use Type: does not use Exam Initial Vital Signs Initial Vital Signs: Vital Signs Pulse Rate 99 H 03/08/23 15:18 Pulse Oximetry 93 03/08/23 15:18 GENERAL: Alert 58-year-old and in [no acute] distress. HEENT: Head atraumatic,EOMI, pupils reactive, face symmetric, [moist] mucous membranes CARDIOVASCULAR: Regular rate and rhythm without murmurs, rubs or gallops. RESPIRATORY: Decreased breath sounds bilaterally mild conversational dyspnea no rales or rhonchi ABDOMEN: Soft, nontender. Normoactive bowel sounds all 4 quadrants. No guarding or rebound. EXTREMITIES: Normal range of motion, no clubbing. 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 Course Orders Ordered: Discontinued Medications Albuterol/Ipratropium (Albuterol/Ipratropium 3 Ml Ampul) 3 ml INH NOW ONE Stop: 03/08/23 15:57 Last Admin: 03/08/23 16:00 Dose: 3 ml Documented By: IZA Aspirin (Aspirin 81 Mg Chew Tab) 324 mg PO NOW ONE Stop: 03/08/23 15:29 Last Admin: 03/08/23 15:45 Dose: Not Given Documented By: CLAYTON Furosemide (Furosemide 40 Mg/4 Ml Vial) 40 mg IV NOW ONE Stop: 03/08/23 16:25 Last Admin: 03/08/23 16:42 Dose: 40 mg Documented By: CLAYTON Methylprednisolone (Methylprednisolone 125 Mg/2 Ml Vial) 125 mg IV NOW ONE Stop: 03/08/23 16:25 Last Admin: 03/08/23 16:41 Dose: 125 mg Documented By: CLAYTON Vital Signs Vital signs: Vital Signs - 8 hr 03/08/23 15:23 03/08/23 16:00 03/08/23 15:18 Temperature 98.5 F Pulse Rate 99 H 93 H 99 H Respiratory Rate 16 18 Blood Pressure 112/54 L Pulse Oximetry 94 97 93 Oxygen Delivery Method Room Air Room Air 03/08/23 15:30 03/08/23 15:30 03/08/23 16:00 Temperature Pulse Rate 97 H Respiratory Rate Blood Pressure 108/58 L 112/53 L Pulse Oximetry 98 Oxygen Delivery Method Room Air 03/08/23 16:00 03/08/23 16:17 03/08/23 16:17 Temperature Pulse Rate 91 H 91 H Respiratory Rate 23 Blood Pressure 114/54 L Pulse Oximetry 96 95 Oxygen Delivery Method 03/08/23 16:26 03/08/23 16:26 03/08/23 16:30 Temperature Pulse Rate 92 H Respiratory Rate 23 Blood Pressure 109/58 L 113/59 L Pulse Oximetry 96 Oxygen Delivery Method Room Air 03/08/23 16:30 03/08/23 17:00 03/08/23 17:00 Temperature Pulse Rate 92 H 87 Respiratory Rate 26 H 23 Blood Pressure 107/58 L Pulse Oximetry 94 97 Oxygen Delivery Method 03/08/23 17:19 03/08/23 17:19 03/08/23 17:30 Temperature Pulse Rate 78 Respiratory Rate 20 Blood Pressure 91/55 L 99/56 L Pulse Oximetry 96 Oxygen Delivery Method 03/08/23 17:30 03/08/23 18:00 03/08/23 18:00 Temperature Pulse Rate 81 89 Respiratory Rate 29 H 22 Blood Pressure 104/56 L Pulse Oximetry 96 91 Oxygen Delivery Method 03/08/23 18:30 03/08/23 18:30 Temperature Pulse Rate 90 Respiratory Rate 20 Blood Pressure 104/62 Pulse Oximetry 94 Oxygen Delivery Method Room Air MDM - Chest Pain Lab Data 03/08/23 18:20 03/08/23 15:38 Labs: Lab Results 03/08/23 03/08/23 03/08/23 Range/Units 15:38 15:38 15:38 WBC 11.3 H (4.5-11.0) X10^3/uL RBC 3.46 L (4.0-5.2) X10^6/uL Hgb 8.6 L (12.0-16.0) g/dL Hct 28.7 L (36-46) % MCV 83.1 (80-100) fL MCH 24.8 L (26-34) PG MCHC 29.8 L (30-36) % RDW 16.1 H (11.6-14.8) % Plt Count 278 (150-400) X10^3/uL Neut % (Auto) 81.7 H (50-75) % Lymph % (Auto) 8.4 L (25-40) % [place] % (Auto) 7.5 (3-14) % Eos % (Auto) 2.1 (2-4) % Baso % (Auto) 0.3 (0-2) % Neut # (Auto) 9200 H (8402-1263) /uL Lymph # (Auto) 900 L (3188-3490) /uL [place] # (Auto) 800 (0-900) /uL Eos # (Auto) 200 (0-450) /uL Baso # (Auto) 0 (0-100) /uL PT 11.7 (10.1-12.7) SECONDS INR 1.0 (0.9-1.3) APTT 29 (26-36) SECONDS Sodium 137 (137-145) mmol/L Potassium 4.3 (3.4-5.1) mmol/L Chloride 105 (98-107) mmol/L Carbon Dioxide 25 (22-32) mmol/L BUN 21 H (7-17) mg/dL Creatinine 0.71 (0.52-1.04) mg/dL Estimated GFR > 60 (>60) mL/min BUN/Creatinine Ratio 29.6 H (6-22) Glucose 128 H (70-100) mg/dL Calcium 9.0 (8.4-10.2) mg/dL Magnesium 2.0 (1.6-2.3) mg/dL Total Bilirubin 0.1 L (0.2-1.3) mg/dL AST 20 (14-36) IU/L ALT 19 (<35) IU/L Alkaline Phosphatase 75 (38-126) U/L Total Creatine Kinase 51 (30-135) U/L Troponin I 0.042 H (0.01-0.034) ng/mL NT-Pro-B Natriuret Pep 799 H (<125) pg/mL Total Protein 6.8 (6.3-8.2) g/dL Albumin 3.8 (3.5-5.0) g/dL Globulin 3.0 (1.7-4.1) g/dL Albumin/Globulin Ratio 1.3 (1.0-2.8) Lipase 172 (23-300) U/L Blood Type Antibody Screen 03/08/23 03/08/23 03/08/23 Range/Units 15:50 18:20 18:20 WBC (4.5-11.0) X10^3/uL RBC (4.0-5.2) X10^6/uL Hgb 9.1 L (12.0-16.0) g/dL Hct 30.8 L (36-46) % MCV (80-100) fL MCH (26-34) PG MCHC (30-36) % RDW (11.6-14.8) % Plt Count (150-400) X10^3/uL Neut % (Auto) (50-75) % Lymph % (Auto) (25-40) % [place] % (Auto) (3-14) % Eos % (Auto) (2-4) % Baso % (Auto) (0-2) % Neut # (Auto) (9818-7293) /uL Lymph # (Auto) (8271-8928) /uL [place] # (Auto) (0-900) /uL Eos # (Auto) (0-450) /uL Baso # (Auto) (0-100) /uL PT (10.1-12.7) SECONDS INR (0.9-1.3) APTT (26-36) SECONDS Sodium (137-145) mmol/L Potassium (3.4-5.1) mmol/L Chloride (98-107) mmol/L Carbon Dioxide (22-32) mmol/L BUN (7-17) mg/dL Creatinine (0.52-1.04) mg/dL Estimated GFR (>60) mL/min BUN/Creatinine Ratio (6-22) Glucose (70-100) mg/dL Calcium (8.4-10.2) mg/dL Magnesium (1.6-2.3) mg/dL Total Bilirubin (0.2-1.3) mg/dL AST (14-36) IU/L ALT (<35) IU/L Alkaline Phosphatase (38-126) U/L Total Creatine Kinase 53 (30-135) U/L Troponin I 0.043 H (0.01-0.034) ng/mL NT-Pro-B Natriuret Pep (<125) pg/mL Total Protein (6.3-8.2) g/dL Albumin (3.5-5.0) g/dL Globulin (1.7-4.1) g/dL Albumin/Globulin Ratio (1.0-2.8) Lipase (23-300) U/L Blood Type O Positive Antibody Screen Negative Urine Dip Bedside Urine Glucose Negative Bedside Urine Bilirubin - Negative Bedside Urine Ketone - Negative Urine Specific [place] 1.015 Bedside Urine Occult Blood - Negative Bedside Urine pH 6.0 Bedside Urine Protein +/- 15 Bedside Urine Urobilinogen - Negative Bedside Urine Nitrite - Negative Bedside Urine Leukocytes - Negative Esterase Imaging Data Chest x-ray: Radiologist's Impression: PROCEDURE:? XR CHEST 1V ? INDICATIONS:? chest pain ? TECHNIQUE:? One view of the chest was acquired.? ? COMPARISON:? [facility], CR, XR CHEST 1V, 04/26/2022, 20:22. ? FINDINGS:? ? Surgical changes and devices:? None.? ? Lungs and pleura:? Lungs are clear.? No pleural effusions or pneumothorax.? Atherosclerotic vascular calcification noted in the aortic arch. ? Mediastinum:? Mediastinal contours appear normal.? Heart size is normal.? ? Bones and chest wall:? No suspicious bony lesions.? Overlying soft tissues appear unremarkable.? ? ? IMPRESSION:? No acute cardiopulmonary findings ? ? ? Approved by: Joel Andrea M.D. on 03/08/2023 at 16:32? CT scan - head: Radiologist's Impression: PROCEDURE:? CT HEAD/BRAIN WO CON ? INDICATIONS:? weakness hx AVM ? TECHNIQUE:? Noncontrast 4.5 mm thick angled axial sections acquired from the foramen magnum to the vertex, with coronal and sagittal reformats.? For radiation dose reduction, the following was used:? automated exposure control, adjustment of mA and/or kV according to patient size.? ? COMPARISON:? [facility], MR, MR BRAIN WITH/WITHOUT CONTRAST, 07/18/19 23, 12:55. ? FINDINGS:? Image quality:? Excellent.? ? CSF spaces:? Basal cisterns are patent.? No extra-axial fluid collections.? Ventricles are normal in size and shape.? ? Brain:? No midline shift.? No intracranial masses or hemorrhage.? Ramsay-white matter interface is normal.? ? Skull and face:? Calvarium and visualized facial bones are intact, without suspicious lesions.? ? Sinuses:? Visualized sinuses and mastoids are clear.? ? IMPRESSION:? Normal CT of the brain ? ? ? Approved by: Joel Andrea M.D. on 03/08/2023 at 17:00? ECG Data Interpretation: Sinus rhythm rate 95 RI interval 166 QRS [address] changes similar to previous EKG in March 2022 MDM Narrative Medical decision making narrative: Patient 58-year-old female presents today with multiple comorbidities including diabetes, AVMs chronic rectal bleeding, COPD with congestive heart failure. She is not hypoxic but does have some conversational dyspnea. She initially is gi denise DuoNeb treatment and Solu-Medrol which actually opens her up the most. She is also given Lasix she is urinated quite a bit. Overall feeling a lot better. Hemoglobin is stable and actually improving initially hemoglobin 8.6 hematocrit 28.7 with a repeat of 9.1 and 30.8 respectively. No evidence of needing blood transfusion. Chest x-ray does not show any evidence of pneumonia. COVID-19 is negative. She is afebrile no sepsis. Troponins are stable and indeterminate Head CT was done because she was feeling generally weak all over no evidence of intracranial hemorrhage. She is hesitant to take prednisone at home she feels like it makes her lungs burn. So we discussed increasing torsemide for couple of days and then if she still having difficulty breathing then she can take prednisone. Discharge Plan Departure Patient Disposition: Home Clinical Impression: Acute CHF, Asthma, Anemia Instructions: Chronic Obstructive Pulmonary Disease, DI for Heart Failure Activity Restrictions/Additional Instructions: *You have been diagnosed with COPD, congestive heart failure *What to do: At this time no need for blood transfusion or transferring. Other causes for your shortness of breath. May require repeat blood work later this week with her PCP *Continue to take medications as directed Increase torsemide double it for 3 days then resume normal dose (10mg twice a day for 3 days, then resume once daily. May also take 20mg once daily for 3 days) Prednisone 40 mg once a day for 5 days *Follow up with your primary care provider in 2-3 days or call [phone] *Return to ER if you should have increasing shortness of breath chest pain fever or any new, worsening or concerning symptoms Prescriptions: New torsemide 10 mg tablet 10 mg PO BID Qty: 6 0RF prednisone 20 mg tablet 40 mg PO DAILY Qty: 10 0RF No Action hydrochlorothiazide 25 mg tablet 25 mg PO DAILY Patient Comments: TAKE 1 TABLET BY MOUTH ONCE DAILY lisinopril 20 mg tablet 20 mg PO DAILY Patient Comments: TAKE 1 TABLET BY MOUTH ONCE DAILY pravastatin 10 mg tablet 10 mg PO DAILY Patient Comments: TAKE 1 TABLET BY MOUTH ONCE DAILY metformin 1,000 mg tablet 1,000 mg PO BID Patient Comments: TAKE 1 TABLET BY MOUTH TWICE DAILY albuterol sulfate [Ventolin HFA] 90 mcg/actuation HFA aerosol inhaler 2 puff INHALATION Q6HR PRN (Reason: Shortness Of Breath) Patient Comments: INHALE 2 PUFFS BY MOUTH EVERY 6 HOURS NEEDED ferrous sulfate 324 mg (65 mg iron) tablet,delayed release (DR/EC) 324 mg PO BID Qty: 1 0RF acetylcysteine [NAC] 600 mg capsule 600 mg PO BID alpha lipoic acid 200 mg capsule 200 mg PO BID spironolactone 25 mg tablet 25 mg PO DAILY atorvastatin 20 mg tablet 20 mg PO DAILY pantoprazole 40 mg tablet,delayed release (DR/EC) 40 mg PO BID torsemide 10 mg tablet 10 mg PO DAILY fluticasone propionate [Flovent HFA] 110 mcg/actuation HFA aerosol inhaler 1 puff inhalation ONCE All Day Allergy (cetirizine) 10 mg capsule 10 mg PO DAILY PRN Referrals: Lena Carpio MD [Primary Care Provider] - Stand Alone Forms: Patient Portal/API
[2023-03-08 15:49] LABS: Add Manual Diff / Slide Review NO; Basophils Absolute Auto 0 /uL (0-100); Basophils Percent Auto 0.3 % (0-2); Eosinophils Absolute Auto 200 /uL (0-450); Eosinophils Percent Auto 2.1 % (2-4); Hematocrit 28.7 % (36-46); Hemoglobin 8.6 g/dL (12.0-16.0); Lymphocytes Absolute Auto 900 /uL (1100-4500); Lymphocytes Percent Auto 8.4 % (25-40); Mean Corpuscular HGB Conc 29.8 % (30-36); Mean Corpuscular Hemoglobin 24.8 PG (26-34); Mean Corpuscular Volume 83.1 fL (80-100); Monocytes Absolute Auto 800 /uL (0-900); Monocytes Percent Auto 7.5 % (3-14); Neutrophils Absolute Auto 9200 /uL (1500-7000); Neutrophils Percent Auto 81.7 % (50-75); Platelet Count 278 X10^3/uL (150-400); Red Blood Cell Count 3.46 X10^6/uL (4.0-5.2); Red Cell Distribution Width 16.1 % (11.6-14.8); White Blood Cell Count 11.3 X10^3/uL (4.5-11.0)
--- NOTE | 2023-03-08 15:56 | DI.CT.S_ITS ---
PROCEDURE: CT HEAD/BRAIN WO CON INDICATIONS: weakness hx AVM TECHNIQUE: Noncontrast 4.5 mm thick angled axial sections acquired from the foramen magnum to the vertex, with coronal and sagittal reformats. For radiation dose reduction, the following was used: automated exposure control, adjustment of mA and/or kV according to patient size. COMPARISON: [facility], MR, MR BRAIN WITH/WITHOUT CONTRAST, 07/18/2022, 12:55. FINDINGS: Image quality: Excellent. CSF spaces: Basal cisterns are patent. No extra-axial fluid collections. Ventricles are normal in size and shape. Brain: No midline shift. No intracranial masses or hemorrhage. Ramsay-white matter interface is normal. Skull and face: Calvarium and visualized facial bones are intact, without suspicious lesions. Sinuses: Visualized sinuses and mastoids are clear. IMPRESSION: Normal CT of the brain Approved by: Joel Andrea M.D. on 03/08/2023 at 17:00
[2023-03-08] MEDS: ALBUTEROL/IPRATROPIUM 3 ML AMPUL INH (16:00)
[2023-03-08 16:01] LABS: Prothrombin Time 11.7 SECONDS (10.1-12.7)
[2023-03-08 16:03] LABS: Alanine Aminotransferase 19 IU/L (<35); Albumin 3.8 g/dL (3.5-5.0); Albumin Globulin Ratio 1.3 (1.0-2.8); Alkaline Phosphatase 75 U/L (38-126); Aspartate Aminotransferase 20 IU/L (14-36); BUN Creatinine Ratio 29.6 (6-22); Bilirubin Total 0.1 mg/dL (0.2-1.3); Blood Urea Nitrogen 21 mg/dL (7-17); Carbon Dioxide 25 mmol/L (22-32); Chloride 105 mmol/L (98-107); Creatine Kinase 51 U/L (30-135); Estimated Glomerular Filt Rate > 60 mL/min (>60); Glucose 128 mg/dL (70-100); HEMOLYSIS < 15 (0-50); Lipase 172 U/L (23-300); PTT Partial Thromboplastin Tim 29 SECONDS (26-36); Potassium 4.3 mmol/L (3.4-5.1); Sodium 137 mmol/L (137-145); Total Protein 6.8 g/dL (6.3-8.2)
[2023-03-08 16:14] LABS: NT-proBNP (BNP-Adult 18+) 799 pg/mL (<125); Troponin I 0.042 ng/mL (0.01-0.034)
--- NOTE | 2023-03-08 16:29 | PC.NURSE ---
Patient was placed on room air previous to CT scan. I accompanied patient with transport monitor to monitor oxygen saturation which maintained 95-96% on room air after breathing treatment. Patient was able to tolerate laying down in the CT scanner. Patient back in room with 95% room air.
[2023-03-08] MEDS: methylPREDNISolone 125 MG/2 ML VIAL IV (16:41)
[2023-03-08] MEDS: FUROSEMIDE 40 MG/4 ML VIAL IV (16:42)
[2023-03-08 18:30] LABS: Hematocrit 30.8 % (36-46); Hemoglobin 9.1 g/dL (12.0-16.0)
[2023-03-08 18:35] LABS: Creatine Kinase 53 U/L (30-135)
[2023-03-08 18:48] LABS: Troponin I 0.043 ng/mL (0.01-0.034)
== END 2023-03-08 19:57 | disposition home or self-care (01) ==
PROVIDERS: Emergency Medicine; Emergency Provider Emergency Medicine; PCP Family Medicine
DX: I50.9 Heart failure, unspecified (principal); D64.9 Anemia, unspecified; R07.9 Chest pain, unspecified; J45.909 Unspecified asthma, uncomplicated; Z79.899 Other long term (current) drug therapy
CPT/HCPCS: 36415; 70450; 71045; 80053; 81003; 82550; 83690; 83735; 83880; 84484; 85014; 85018; 85025; 85610; 85730; 86850; 86900; 86901; 93005; 93010; 94640; 96374; 96375; 99284; 99285; J1940; J2930

== ENCOUNTER 2023-07-18 13:12 | Emergency (ER) | payer MEDICARE, SELFPAY ==
[2021-11-01 11:59] VITALS: BMI 48.2
[2023-07-18] VITALS (13 sets, daily range): BP systolic 113–142; BP diastolic 55–67; PULSE 86–107; RESP 17–27; TEMP 37.1; O2SAT 92–97; BMI 40.1
--- NOTE | 2023-07-18 13:22 | DI.RAD.S_ITS ---
PROCEDURE: XR CHEST 1V INDICATIONS: Shortness of breath TECHNIQUE: One view of the chest was acquired. COMPARISON: [facility], CR, XR CHEST 1V, 03/08/2023, 15:27. FINDINGS: Surgical changes and devices: None. Lungs and pleura: Lungs are clear. No pleural effusions or pneumothorax. Mediastinum: Heart size enlarged. Atherosclerotic vascular calcification noted in the aortic arch. Mild vascular congestion noted Bones and chest wall: No suspicious bony lesions. Overlying soft tissues appear unremarkable. IMPRESSION: Cardiomegaly with mild vascular congestion Approved by: Joel Andrea M.D. on 07/18/2023 at 14:35
--- NOTE | 2023-07-18 13:36 | ED_ITS ---
HPI - SOB/Dyspnea General Chief Complaint: Shortness of Breath/Dyspnea Stated Complaint: CHEST PAIN/TROUBLE BREATHING Time Seen by Provider: 07/18/23 13:18 Source: patient Mode of arrival: Wheelchair History of Present Illness HPI Narrative: 58-year-old female with history of congestive heart failure, hereditary hemolytic telangiectasia, anemia presents by private vehicle from home for shortness of breath and chest pressure since waking up this morning. Patient states that she has been compliant with her torsemide but feels like she is filling up with fluid again. Related Data Home Medications Medication Instructions Recorded Confirmed albuterol sulfate 90 mcg/actuation 2 puff inhalation Q6HR PRN 11/01/21 08/13/22 aerosol inhaler (Ventolin HFA) Shortness Of Breath lisinopril 20 mg tablet 20 mg PO DAILY 11/01/21 08/13/22 metformin 1,000 mg tablet 1,000 mg PO BID 11/01/21 08/13/22 atorvastatin 20 mg tablet 20 mg PO DAILY 08/13/22 08/13/22 cetirizine 10 mg capsule (All Day 10 mg PO DAILY PRN 08/13/22 08/13/22 Allergy (cetirizine)) fluticasone propionate 110 1 puff inhalation ONCE 08/13/22 08/13/22 mcg/actuation HFA aerosol inhaler (Flovent HFA) pantoprazole 40 mg tablet,delayed 40 mg PO BID 08/13/22 08/13/22 release spironolactone 25 mg tablet 25 mg PO DAILY 08/13/22 08/13/22 torsemide 10 mg tablet 10 mg PO DAILY 08/13/22 08/13/22 Previous Rx's Medication Instructions Recorded ferrous sulfate 324 mg (65 mg 324 mg PO BID #1 tab 11/03/21 iron) tablet,delayed release torsemide 10 mg tablet 10 mg PO BID #6 tabs 03/08/23 torsemide 20 mg tablet 20 mg PO DAILY #60 tabs 07/18/23 Allergies Allergy/AdvReac Type Severity Reaction Status Date / Time Fish Containing Products Allergy Verified 07/18/23 13:23 Blood Thinners AdvReac Intermediate Uncoded 07/03/23 08:45 Review of Systems Review of Systems Narrative: Negative except as noted above Patient History Medical History Asthma AVM (arteriovenous malformation) of colon Diabetic peripheral neuropathy Facet arthropathy, lumbar Lumbar stenosis with neurogenic claudication Social History household members: family Smoking Status: Current every day smoker alcohol intake: never Smoking Status: Current every day smoker tobacco type: cigarettes alcohol intake frequency: holidays/special occasions only Substance Use Type: does not use Exam Initial Vital Signs Initial Vital Signs: Vital Signs Temperature 98.8 F 07/18/23 13:14 Pulse Rate 105 H 07/18/23 13:14 Respiratory Rate 24 07/18/23 13:14 Blood Pressure 142/64 H 07/18/23 13:14 Pulse Oximetry 95 07/18/23 13:14 Oxygen Delivery Method Room Air 07/18/23 13:14 Const: Awake, alert, appears chronically unwell Cardiac: Tachycardia, regular rhythm RESP: Mild respiratory distress, sitting upright for comfort, faint inspiratory crackles bibasilarly GI: Atraumatic, soft, nontender MSK: Atraumatic, full range of motion, pulses equal Skin: Warm, Dry, intact, no rashes Neuro: AO x3, CN II-XII grossly intact, moves all extremities Course Orders Ordered: Discontinued Medications Furosemide (Furosemide 40 Mg/4 Ml Vial) 40 mg IV NOW ONE Stop: 07/18/23 14:35 Last Admin: 07/18/23 14:49 Dose: 40 mg Documented By: RB Furosemide (Furosemide 40 Mg/4 Ml Vial) 20 mg IV NOW ONE Stop: 07/18/23 15:46 Last Admin: 07/18/23 16:01 Dose: 20 mg Documented By: RB Vital Signs Vital signs: Vital Signs - 8 hr 07/18/23 13:14 07/18/23 13:18 07/18/23 13:18 Temperature 98.8 F Pulse Rate 105 H 107 H Respiratory Rate 24 Blood Pressure 142/64 H 142/64 H Pulse Oximetry 95 93 Oxygen Delivery Method Room Air 07/18/23 13:30 07/18/23 13:30 07/18/23 14:00 Temperature Pulse Rate 101 H Respiratory Rate 20 Blood Pressure 120/56 L 119/57 L Pulse Oximetry 93 Oxygen Delivery Method 07/18/23 14:00 07/18/23 14:30 07/18/23 15:00 Temperature Pulse Rate 93 H 93 H 92 H Respiratory Rate 18 17 Blood Pressure Pulse Oximetry 94 97 93 Oxygen Delivery Method 07/18/23 15:23 07/18/23 15:23 07/18/23 15:30 Temperature Pulse Rate 96 H Respiratory Rate Blood Pressure 129/67 126/60 Pulse Oximetry 92 Oxygen Delivery Method 07/18/23 15:30 07/18/23 16:00 07/18/23 16:03 Temperature Pulse Rate 92 H 96 H Respiratory Rate 26 H 21 Blood Pressure 125/60 Pulse Oximetry 93 94 Oxygen Delivery Method 07/18/23 16:03 07/18/23 16:30 07/18/23 16:37 Temperature Pulse Rate 92 H 91 H Respiratory Rate 27 H 26 H Blood Pressure 113/55 L Pulse Oximetry 96 96 Oxygen Delivery Method 07/18/23 16:37 Temperature Pulse Rate 86 Respiratory Rate 20 Blood Pressure Pulse Oximetry 96 Oxygen Delivery Method MDM - SOB/Dyspnea Lab Data 07/18/23 13:30 07/18/23 13:30 Labs: Lab Results 07/18/23 Range/Units 13:30 WBC 9.6 (4.5-11.0) X10^3/uL RBC 4.20 (4.0-5.2) X10^6/uL Hgb 8.7 L (12.0-16.0) g/dL Hct 31.0 L (36-46) % MCV 73.8 L (80-100) fL MCH 20.6 L (26-34) PG MCHC 28.0 L (30-36) % RDW 19.4 H (11.6-14.8) % Plt Count 243 (150-400) X10^3/uL Neut % (Auto) 78.9 H (50-75) % Lymph % (Auto) 7.5 L (25-40) % [place] % (Auto) 8.3 (3-14) % Eos % (Auto) 3.2 (2-4) % Baso % (Auto) 2.1 H (0-2) % Neut # (Auto) 7600 H (5565-0978) /uL Lymph # (Auto) 700 L (3123-6571) /uL [place] # (Auto) 800 (0-900) /uL Eos # (Auto) 300 (0-450) /uL Baso # (Auto) 200 H (0-100) /uL Plt Morphology Comment RBC Morphology See below Polychromasia 1+ H Hypochromasia 2+ H Anisocytosis 3+ H Microcytosis 2+ H Macrocytosis 1+ H Target Cells 1+ H Tear Drop Cells 1+ H Ovalocytes 2+ H Stomatocytes 1+ H Acanthocytes (Spur) 1+ H Schistocytes 1+ H PT 12.5 (9.4-12.5) SECONDS INR 1.1 (0.9-1.3) Sodium 139 (137-145) mmol/L Potassium 4.2 (3.4-5.1) mmol/L Chloride 103 (98-107) mmol/L Carbon Dioxide 28 (22-32) mmol/L BUN 20 H (7-17) mg/dL Creatinine 1.03 (0.52-1.04) mg/dL Estimated GFR > 60 (>60) mL/min BUN/Creatinine Ratio 19.4 (6-22) Glucose 190 H (70-100) mg/dL Lactate 1.7 (0.7-2.1) mmol/L Calcium 9.0 (8.4-10.2) mg/dL Total Bilirubin 0.4 (0.2-1.3) mg/dL AST 20 (14-36) IU/L ALT 16 (<35) IU/L Alkaline Phosphatase 74 (38-126) U/L Troponin I < 0.012 (0.01-0.034) ng/mL NT-Pro-B Natriuret Pep 1110 H (<125) pg/mL Total Protein 7.3 (6.3-8.2) g/dL Albumin 4.1 (3.5-5.0) g/dL Globulin 3.2 (1.7-4.1) g/dL Albumin/Globulin Ratio 1.3 (1.0-2.8) MDM Narrative Medical decision making narrative: Dyspnea and chest pressure, patient states she feels like she is full of fluid again. She does appear to be somewhat uncomfortable, sitting upright in bed for comfort. Faint crackles noted on pulmonary exam, nonpitting edema in bilateral lower extremities. While sitting upright patient is saturating 95% on room air, but we will briefly dip into the 80s with exertion. Lasix ordered for diuresis. Laboratory work is significant for anemia. Hemoglobin today 8.7, previous value 9.1, grossly stable. Troponin negative, BNP elevated. Chest x-ray shows vascular congestion. Patient has received IV Lasix and has visited the restroom numerous times to urinate. She is diuresing well. After several hours of observation the patient stated that she felt markedly better and she stated that the fluid was already starting to recede from her body. Stable saturations on room air, patient states she is oxygen at home for as needed and nightly use that she will use if she feels short of breath. She was counseled to increase her torsemide for the next several days and a refill of her medication was sent to pharmacy of choice. 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 ED return precautions discussed at bedside. Patient expressed understanding of the plan and is in agreement at this time. All questions answered at the time of discharge. Discharge Plan Departure Patient Disposition: Home Clinical Impression: Acute CHF Instructions: DI for Heart Failure Prescriptions: New torsemide 20 mg tablet 20 mg PO DAILY Qty: 60 0RF No Action lisinopril 20 mg tablet 20 mg PO DAILY Patient Comments: TAKE 1 TABLET BY MOUTH ONCE DAILY metformin 1,000 mg tablet 1,000 mg PO BID Patient Comments: TAKE 1 TABLET BY MOUTH TWICE DAILY albuterol sulfate [Ventolin HFA] 90 mcg/actuation HFA aerosol inhaler 2 puff INHALATION Q6HR PRN (Reason: Shortness Of Breath) Patient Comments: INHALE 2 PUFFS BY MOUTH EVERY 6 HOURS NEEDED ferrous sulfate 324 mg (65 mg iron) tablet,delayed release (DR/EC) 324 mg PO BID Qty: 1 0RF torsemide 10 mg tablet 10 mg PO BID Qty: 6 0RF spironolactone 25 mg tablet 25 mg PO DAILY atorvastatin 20 mg tablet 20 mg PO DAILY pantoprazole 40 mg tablet,delayed release (DR/EC) 40 mg PO BID torsemide 10 mg tablet 10 mg PO DAILY fluticasone propionate [Flovent HFA] 110 mcg/actuation HFA aerosol inhaler 1 puff inhalation ONCE All Day Allergy (cetirizine) 10 mg capsule 10 mg PO DAILY PRN Referrals: Lena Carpio MD [Non-Staff] - Stand Alone Forms: Patient Portal/API
[2023-07-18 13:42] LABS: Basophils Absolute Auto 200 /uL (0-100); Basophils Percent Auto 2.1 % (0-2); Eosinophils Absolute Auto 300 /uL (0-450); Eosinophils Percent Auto 3.2 % (2-4); Hemoglobin 8.7 g/dL (12.0-16.0); Lymphocytes Absolute Auto 700 /uL (1100-4500); Lymphocytes Percent Auto 7.5 % (25-40); Mean Corpuscular Hemoglobin 20.6 PG (26-34); Mean Corpuscular Volume 73.8 fL (80-100); Monocytes Absolute Auto 800 /uL (0-900); Monocytes Percent Auto 8.3 % (3-14); Neutrophils Absolute Auto 7600 /uL (1500-7000); Neutrophils Percent Auto 78.9 % (50-75); Platelet Count 243 X10^3/uL (150-400); Red Cell Distribution Width 19.4 % (11.6-14.8); White Blood Cell Count 9.6 X10^3/uL (4.5-11.0)
[2023-07-18 14:01] LABS: Add Manual Diff / Slide Review SLIDE REVIEW
[2023-07-18 14:12] LABS: INR 1.1 (0.9-1.3); Prothrombin Time 12.5 SECONDS (9.4-12.5)
[2023-07-18 14:16] LABS: Lactate (Lactic Acid) 1.7 mmol/L (0.7-2.1)
[2023-07-18 14:18] LABS: Alanine Aminotransferase 16 IU/L (<35); Albumin 4.1 g/dL (3.5-5.0); Albumin Globulin Ratio 1.3 (1.0-2.8); Alkaline Phosphatase 74 U/L (38-126); Aspartate Aminotransferase 20 IU/L (14-36); BUN Creatinine Ratio 19.4 (6-22); Bilirubin Total 0.4 mg/dL (0.2-1.3); Blood Urea Nitrogen 20 mg/dL (7-17); Carbon Dioxide 28 mmol/L (22-32); Chloride 103 mmol/L (98-107); Estimated Glomerular Filt Rate > 60 mL/min (>60); Globulin 3.2 g/dL (1.7-4.1); Glucose 190 mg/dL (70-100); HEMOLYSIS < 15 (0-50); Potassium 4.2 mmol/L (3.4-5.1); Sodium 139 mmol/L (137-145); Total Protein 7.3 g/dL (6.3-8.2)
[2023-07-18 14:24] LABS: Anisocytosis 3+; Macrocytosis 1+; Microcytosis 2+
[2023-07-18 14:25] LABS: Acanthocytes 1+; Hypochromasia 2+; Ovalocytes 2+; Polychromasia 1+; Schistocytes 1+; Stomatocytes 1+; Target Cells 1+; Tear Drop Cells 1+
[2023-07-18 14:29] LABS: NT-proBNP (BNP-Adult 18+) 1110 pg/mL (<125); Troponin I < 0.012 ng/mL (0.01-0.034)
[2023-07-18] MEDS: FUROSEMIDE 40 MG/4 ML VIAL IV (14:49)
[2023-07-18] MEDS: FUROSEMIDE 40 MG/4 ML VIAL 20 MG IV (16:01)
== END 2023-07-18 17:07 | disposition home or self-care (01) ==
PROVIDERS: Emergency Provider Emergency Medicine; PCP Family Medicine
DX: I50.9 Heart failure, unspecified (principal); R06.02 Shortness of breath; Z79.899 Other long term (current) drug therapy
CPT/HCPCS: 36415; 71045; 80053; 83605; 83880; 84484; 85025; 85610; 93005; 93010; 96374; 96376; 99284; J1940

== ENCOUNTER → 2024-09-28 12:25 | Outpatient (CLI) | payer MEDICARE, SELFPAY ==
[2024-06-15 15:14] VITALS: BMI 48.2
--- NOTE | 2024-09-28 12:29 | DI.RAD.S_ITS ---
PROCEDURE: XR LUMBAR SPINE MIN 4V INDICATIONS: BACK PAIN TECHNIQUE: 5 views of the lumbar spine were acquired, including bilateral oblique views. COMPARISON: None. FINDINGS: Bones: 5 nonrib-bearing vertebrae are present. Multilevel degenerative changes with disc space narrowing, osteophytes, facet osseous hypertrophic changes most notably at L4-5 and L5-S1 with suspected [id number] bilateral neural foraminal narrowing at these levels. Grade 1 spondylolisthesis L4 on L5. Mild degenerative changes bilateral hips. Mild calcifications of the aorta and iliac vessels. . Several 5-6 mm round calcifications right upper quadrant commonly cholelithiasis. Several calcifications in the pelvis commonly phleboliths. Surgical clips projected over the left femoral head on the frontal image of unknown clinical significance. No radiographic evidence of fracture. IMPRESSION: Degenerative changes as discussed above most notably at L4-5 and L5-S1. Grade 1 spondylolisthesis L4 on L5. If symptoms persist or worsen, or there is high clinical suspicion of lumbar abnormality, MRI could be performed. Dictated by: Raudel Silverman M.D. on 09/28/2024 at 13:02 Approved by: Raudel Silverman M.D. on 09/28/2024 at 13:06
== END ==
PROVIDERS: PCP Family Medicine; Referring Provider Physical Medicine & Rehabilitation; Visit Provider Physical Medicine & Rehabilitation
DX: M48.062 Spinal stenosis, lumbar region with neurogenic claudication (principal); M47.816 Spondylosis without myelopathy or radiculopathy, lumbar region; M47.817 Spondylosis without myelopathy or radiculopathy, lumbosacral region; M43.16 Spondylolisthesis, lumbar region
CPT/HCPCS: 72110

== ENCOUNTER 2024-10-13 10:49 | Outpatient (CLI) | payer MEDICARE, SELFPAY ==
[2024-06-15 15:14] VITALS: BMI 48.2
[2024-10-13] VITALS (8 sets, daily range): BP systolic 130–168; BP diastolic 70–96; PULSE 75–84; RESP 14–16; O2SAT 95–99
[2024-10-13] MEDS: MIDAZOLAM 2 MG/2 ML VIAL IV (11:46)
[2024-10-13] MEDS: BUPIVACAINE 0.25% (PF) VIAL 2 ML INJ (11:51)
[2024-10-13] MEDS: iopamidoL 15 ML VIAL 3 ML INJ (11:52)
[2024-10-13] MEDS: DEXAMETHASONE 10 MG/ML VIAL INJ (11:52)
[2024-10-13] MEDS: BETAMETHASONE 30 MG/5 ML MDV 12 MG INJ (11:52)
--- NOTE | 2024-10-13 12:02 | P.PCN_ITS ---
Date/Time/Diagnoses Date of procedure: 10/13/24 Time of procedure: 12:02 Pre-procedure diagnosis: 1. HNP WITH RADICULAR FEATURES, 2. MULTILEVEL CENTRAL STENOSIS, Post-procedure diagnosis: same Procedure Notes Procedure: 1. FLUOROSCOPICALLY GUIDED CONTRAST CONTROLLED INTERLAMINAR EPIDURAL STEROID INJECTION -L4/5 Indications: Jayme is referred by Dr. Vargas for treatment of Bilateral Foraminal Stenosis R>L LE symptoms. Physician: Mitchel Mccann Total Fluoroscopy time (seconds): 8 Total sedation minutes: 13 Complications: none Procedure in detail & Post-procedure care: FINDINGS Multilevel Central Spinal Stenosis with Nerve Root Compression DESCRIPTION OF PROCEDURE Fluoroscopically guided, contrast-controlled L4/5 translaminar epidural steroid injection. Following review of allergy and review of potential side effects and complications, including, but not necessarily limited to, infection, allergic reaction, local tissue breakdown, temporary as well as permanent nerve injury, paralysis, stroke and possible , the patient indicated that the patient understood and agreed to proceed. An informed consent document was signed by the patient, witnessed by a nurse, and placed in the patient's chart. Additionally, other treatment options including modalities, medications, and physical therapy were reviewed with the patient. After review of previous anaesthesic history and IV conscious sedation the patient was deemed safe to proceed with today?s procedure with IV conscious sedation as ASA class II designation. Safety time-out was performed to confirm patient ID, procedure to be performed and site of procedure. IV sedation was accomplished with a combination of 2mg of Versed was administered by the RN after DO order, titrated to patient comfort during the course of the procedure while the patient remained responsive to all verbal commands In the prone position, following sterile prep and drape of the lumbar region, the L4/5 translaminar space was identified fluoroscopically. The skin was anesthetized via a 25-gauge, 1.5inch needle with 1% lidocaine solution. At this point, a 22-gauge short bevel spinal needle was atraumatically introduced and ad vanced under fluoroscopic guidance into the region of the L4/5 translaminar space. Depth was confirmed on lateral view. Radiological data, including multiple fluoroscopic views of the lumbar spine, reveal a spinal needle at the L4/5 translaminar space. Lateral views then show placement of the needle in the epidural space. Subsequent views show contrast material flowing superiorly and inferiorly in the epidural space. No vascular or intrathecal uptake is observed. At this point, using loss of resistance technique with saline and air, the epidural space was entered. This was confirmed following negative aspiration with injection of approximately 1.5cc of Isovue 200, showing excellent epidural flow without vascular or intrathecal uptake. At this point, 1cc of 1% lidocaine solution combined with 3cc or 10mg of dexamethasone and 12mg betamethasone was injected without incident. The patient tolerated the procedure well without signs or symptoms of complications prior to transfer to the recovery area continued monitoring without incident. The patient was then transferred to the recovery area where they were observed for an appropriate period of time after the injection. The patient reported a VAS score of 6 prior to the procedure and a post- procedure VAS of 0. POST OP INSTRUCTIONS The patient was provided a Pain Log to continue to record their response to the target-specific procedure prior to follow-up visit with their referring physician. Additionally, specific post-injection care instructions and a contact number to our office were provided if concerns arise regarding possible complications associated with the procedure are suspected.
== END 2024-10-13 12:18 | disposition home or self-care (01) ==
LOC: RAD 10:50
PROVIDERS: PCP Family Medicine; Referring Provider Family Medicine; Visit Provider Physical Medicine & Rehabilitation
DX: M51.16 Intervertebral disc disorders with radiculopathy, lumbar region (principal); M48.062 Spinal stenosis, lumbar region with neurogenic claudication
CPT/HCPCS: 62323; 99152; J0702; J1100; J2250; J3490